=== PATIENT | female | born 1980 | race Caucasian/White ===

== ENCOUNTER 2016-04-21 11:38 | Emergency (ER) | payer MEDICAID ==
[2016-04-21] MEDS ORDERED: HYDROmorphONE/DILAUDID 1 MG/ML SYR IVP ONE (12:10)
[2016-04-21] MEDS ORDERED: NS 1,000 ML IV ONE (12:31)
[2016-04-21] MEDS ORDERED: MIDAZOLAM 2 MG/2 ML VIAL IVP ONE (12:45)
[2016-04-21] MEDS ORDERED: MIDAZOLAM 2 MG/2 ML VIAL ONE (12:46)
--- NOTE | 2016-04-21 12:47 | EDPHY ---
H & P Smoking Status: Current every day smoker Time Seen by Provider: 04/21/16 12:40 HPI/ROS: CHIEF COMPLAINT: Left hip dislocation HISTORY OF PRESENT ILLNESS: 36-year-old female history of recurrent left hip dislocation, multiple revisions surgeries arrives via ambulance after she rolled over in bed and felt her hip dislocate. She tried to reduce this at home unsuccessfully. REVIEW OF SYSTEMS: A ten point review of systems was performed and is negative with the exception of the items mentioned in the HPI PAST MEDICAL & SURGICAL HISTORY: Left hip arthroplasty. Recurrent hip dislocation with multiple revisions. SOCIAL HISTORY:positive smoker PHYSICAL EXAM (Prior to examination, patient consented to physical exam, hands were washed and my usual and customary physical exam procedures followed) 1) GENERAL: Well-developed, well-nourished, alert and oriented. Appearsuncomfortable . 2) HEAD: Normocephalic, atraumatic 3) HEENT: Pupils equal, round, reactive to light bilaterally. Sclera anicteric. Nasopharynx, oropharynx, clear, no lesions. 4) NECK: Full range of motion, no meningeal signs. 5) LUNGS: Clear auscultation bilaterally, no wheezes, no rhonchi, no retractions. 6) HEART: Regular rate and rhythm, no murmur, no heave, no gallop. 7) ABDOMEN: No guarding, no rebound, no focal tenderness, 8) MUSCULOSKELETAL: left lower extremity: Patient is sitting upright with her thigh flexed with a pillow splint in place. The distal DP PT pulses are present and brisk with normal color normal temperature. Soft compartments 9) BACK: no visual or palpable abnormality. 10) SKIN: No rash, no petechiae. DIFFERENTIAL DIAGNOSIS: [In no particular include but limited to fracture, dislocation, compartment syndrome (Zeeshan Villanueva Prabha) Constitutional: Initial Vital Signs Temperature (C) 37 C 04/21/16 11:38 Heart Rate 87 04/21/16 11:38 Respiratory Rate 20 04/21/16 11:38 Blood Pressure 88/81 H 04/21/16 11:38 O2 Sat (%) 95 04/21/16 11:38 O2 Delivery Mode [Post Non-Rebreather Mask Procedure 1st] O2 Delivery Mode [Procedural Non-Rebreather Mask 1st] O2 Delivery Mode [.Immediate Non-Rebreather Mask Pre-Procedure Procedural 1st Post Procedure 1st] O2 Delivery Mode Room Air O2 (L/minute) [Post Procedure 10 1st] O2 (L/minute) [.Immediate Pre- 10 Procedure Procedural 1st Post Procedure 1st] Allergies/Adverse Reactions: No Known Allergies Allergy (Verified 10/01/14 15:28) Home Medications: Medication Instructions Recorded ZOLPIDEM TARTRATE [Ambien CR 12.5 12.5 mg PO HS PRN 06/09/14 mg] clonAZEPAM [Clonazepam] 1 mg PO TID PRN 07/06/15 Cymbalta 01/02/16 Hydrocodone/APAP 5/325 [[place] 1 - 2 each PO Q6 PRN #20 tab 02/09/16 5/325] oxyCODONE/APAP 5/325 [Percocet 1 tab PO Q6 #10 tab 04/21/16 5/325] MDM/Departure - MDM Procedures: Procedure: Dislocation reduction. Indications: Dislocation Initial attempts at reduction without procedural sedation or unsuccessful. Procedural sedation provided by Dr. Redman. The dislocation of the left hip was reduced using traction counter traction technique without complications. Post reduction the patient's neurovascular exam is normal. Post reduction x-ray demonstrates reduction of the joint to the anatomic position. The procedure was performed by myself. (Zeeshan Villanueva) Medications Given: Discontinued Medications Hydromorphone HCl (Dilaudid) 1 mg IVP EDNOW ONE Stop: 04/21/16 12:11 Last Admin: 04/21/16 12:19 Dose: 1 mg Sodium Chloride (Ns) 1,000 mls @ 0 mls/hr IV ONCE ONE PRN Reason: Wide Open Stop: 04/21/16 12:32 Last Admin: 04/21/16 12:31 Dose: 1,000 mls Midazolam HCl (Versed) 2 mg IVP ONCE ONE Stop: 04/21/16 12:46 Last Admin: 04/21/16 12:51 Dose: 2 mg Ondansetron HCl (Zofran) 4 mg IVP EDNOW ONE Stop: 04/21/16 12:52 Last Admin: 04/21/16 12:52 Dose: 4 mg Oxycodone/Acetaminophen (Percocet 5/325) 1 tab PO EDNOW ONE Stop: 04/21/16 14:14 Last Admin: 04/21/16 14:39 Dose: 1 tab ED Course/Re-evaluation: The patient was re-evaluated with serial exams. Confirmed anatomic alignment post reduction. She has been given AB duction pillow . Recommend she follow up with orthopedic surgeon in [place] as she has a history of recurrent left hip dislocation. She is neurovascular intact with no evidence of compartment syndrome. (Zeeshan Villanueva) Procedure: Procedural sedation. A pre-sedation evaluation was completed on the patient at 2:20 p.m.. Patient is an appropriate candidate for procedural sedation. The risks of the sedation were discussed with the patient. ASA class 1 E, mallimpati 1. A time out was completed. The patient was sedated with 80 mg IV propofol . The patient was monitored with continuous pulse oximetry and wireless sales expert. There were no complications and no significant hypoxemia. I remained at the bedside for the sedation. The total time I spent in the procedural sedation was 10 minutes. Left hip relocation performed by KAVEH Gaston. I have evaluated and participated in the management of this patient. My co- signature indicates that I have reviewed this chart and that I agree with the findings and the plan of care as documented. My personal history and physical findings include: 36-year-old female with history of multiple left hip dislocations. She presents today with a left hip dislocation. Heart is regular , lungs are clear, abdomen is soft and nontender. She is holding her left leg flexed at the hip and at the knee. Left dorsalis pedis pulses 2+. (Sravanthi Redman) - Depart Disposition: Home, Routine, Self-Care Clinical Impression: Hip dislocation, left Qualifiers: Encounter type: initial encounter Qualifier Code: (S73.005A) Unspecified dislocation of left hip, initial encounter Condition: Good Instructions: Hip Dislocation (ED) Additional Instructions: If you feel your hip dislocated again call 911 Prescriptions: oxyCODONE/APAP 5/325 [Percocet 5/325] 1 tab PO Q6 #10 tab Referrals: Follow-up, with the orthopedic surgeon in [place] this week [Other] - As per Instructions Deloris Cummings MD [Medical Doctor] - 2-3 days, call for appt. (Dr. Deloris Cummings is a [facility] orthopedic surgeon)
[2016-04-21] MEDS ORDERED: ONDANSETRON 4 MG/2 ML VIAL ONE (12:49)
[2016-04-21] MEDS ORDERED: ONDANSETRON 4 MG/2 ML VIAL IVP ONE (12:51)
--- NOTE | 2016-04-21 13:20 | DX ---
Left hip 2 views at 1213 hours History: Possible dislocation. History of previous dislocations. Comparison: Pelvis February 09, 2016. Findings: Posterolateral dislocation of the left hip arthroplasty is present. No fracture is identifi ed. Mild lateral soft tissue swelling is present. Impression: Posterolateral dislocation of the left hip arthroplasty.
[2016-04-21] MEDS ORDERED: PROPOFOL 200 MG/20 ML VIAL ONE (13:21)
[2016-04-21 13:59] VITALS: RESP 14
[2016-04-21] MEDS ORDERED: OXYCODONE/APAP 5/325 TAB PO ONE (14:13)
[2016-04-21] MEDS ORDERED: OXYCODONE/APAP 5/325 TAB ONE (14:15)
--- NOTE | 2016-04-21 14:27 | DX ---
AP pelvis at 1325 hours History: Assess reduction attempt. Comparison: Left hip same day at 1213 hours. Findings: There is persistent lateral dislocation of the left hip arthroplasty. No fracture is identi fied. Impression: Persistent lateral dislocation.
[2016-04-21 14:40] VITALS: BP 128/78; PULSE 70; TEMP 98.4; O2SAT 94
--- NOTE | 2016-04-21 15:14 | DX ---
AP pelvis at 1355 hours History: Post reduction. Comparison: Pelvis same day at 1325 hours and left hip same day at 1213 hours. Findings: On this single view, there appears to have been interval reduction of a left hip arthroplas ty dislocation. No fracture is identified. Impression: Apparent interval reduction of left hip arthroplasty dislocation.
== END 2016-04-21 14:39 | disposition home or self-care (01) ==
LOC: EDUNIT#
PROC: 0SSBXZZ Reposition Left Hip Joint, External Approach (ICD-10-PCS; principal; 2016-04-21)
DX: M24.452 Recurrent dislocation, left hip (principal); F17.200 Nicotine dependence, unspecified, uncomplicated; Z96.642 Presence of left artificial hip joint; X58.XXXA Exposure to other specified factors, initial encounter
CPT/HCPCS: 96374; J1170; J2250; J2405; J2704

== ENCOUNTER 2016-04-23 11:57 | Observation (INO) | payer MEDICAID ==
[2016-04-23] MEDS ORDERED: fentaNYL 100 MCG/2 ML INJ IVP ONE ×2 (12:38→14:32)
--- NOTE | 2016-04-23 13:15 | DX ---
AP pelvis at 1235 hours History: Recurrent dislocation. Comparison: AP pelvis April 21, 2016 at 1355 hours. Findings: There is recurrent lateral dislocation of the left hip arthroplasty. No fracture is identif ied. Impression: Recurrent lateral arthroplasty dislocation.
--- NOTE | 2016-04-23 13:16 | EDPHY ---
H & P Stated Complaint: Hip Dislocation Source: Patient Exam Limitations: No limitations - Personal History LMP (Females 10-55): 15-21 Days Ago Current Tetanus/Diphtheria Vaccine: Unsure Current Tetanus Diphtheria and Acellular Pertussis (TDAP): Unsure - Medical/Surgical History Hx Asthma: Yes Hx Chronic Respiratory Disease: No Hx Diabetes: No Hx Cardiac Disease: No Hx Renal Disease: No Hx Cirrhosis: No Hx Alcoholism: No Hx HIV/AIDS: No Hx Splenectomy or Spleen Trauma: No Other PMH: L hip replacement w/ revision surgery (can dislocate/reduce herself) , asthma, add, ptsd, anxiety, panic disorder - Social History Smoking Status: Current every day smoker HPI/ROS: CHIEF COMPLAINT: Left hip pain, dislocation HISTORY OF PRESENT ILLNESS: patient has extensive history of left hip pain, status post arthroplasty with 3 revisions. Most recently she had this worked on last May. Earlier this morning she was attempting to tie her shoe when her left leg rotated inward and she felt it pop out. She has severe pain since that time. It radiates down the leg. No numbness or tingling. No pain elsewhere. No new trauma. surgeon is Dr. De La Torre in [place] at [facility]. No other associated complaints or modifying factors. REVIEW OF SYSTEMS: Ten systems reviewed and are negative unless otherwise noted in the HPI EXAMINATION General Appearance: Alert, no distress , crying but consolable Head: normocephalic, atraumatic Eyes: Pupils equal and round, no conjunctival pallor or injection Neck: Normal inspection Respiratory: No dyspnea or retractions. No distress Cardiovascular: Pulses normal throughout. symmetric DP and PT pulses are 2+ .Brisk cap refill Gastrointestinal: No distention Neurological: A&O, sensory symmetric, strength symmetric . Skin: Warm and dry, no rash Extremities: Severe tenderness to palpation of the left hip. There is a shortened appearance with internal rotation of the hip. She is neurovascular intact distally this with range of motion retained about the ankle and foot. No cyanosis, pallor anesthesia distally. Psychiatric: Mood and affect normal DIFFERENTIAL DIAGNOSES: Including but not limited to Recurrent hip dislocation, acute dislocation MDM: acute dislocation of the left hip that is also recurrent. The patient has an extensive orthopedic history without leg. She has had an arthroplasty with revision x3 with doctor Britt, not at this facility. This was done while this time her shoe. She is neurovascular intact distally but does appear to be in pain. We will move her to the appropriate room to proceed with a sedation and reduction of the hip. She is asking to have this done and to be sent to her physician. She does not want us to call Orthopedics here. 2:06 p.m. I discussed the case with Dr. Ryan and informed him of my inability to reduce the hip. He said that he can take patient to OR at 5:00 p.m.. He gave the okay to admit to his service observation status. He plans to take patient to the OR for reduction of the hip after clinic. She will be admitted to his service in stable condition. PROCEDURE: Dislocation reduction, Left hip. Patient was moved to room 1 for conscious sedation. This was administered and monitored by Dr. Dick. Please see her note for details regarding sedation. After appropriate sedation, 5 attempts were made to reduce the left hip without success. There were multiple attempts to do so, including [address] Dick. We are unable to do so successfully. She remained neurovascular intact distally. She had no complications during the sedation. SUPERVISION:Patient was evaluated in conjunction with the supervising physician. Please see their note for details. (Chris Renteria) Constitutional: Initial Vital Signs Temperature (C) 36.8 C 04/23/16 11:57 Heart Rate 85 04/23/16 11:57 Respiratory Rate 18 04/23/16 11:57 Blood Pressure 117/97 H 04/23/16 11:57 O2 Sat (%) 98 04/23/16 11:57 O2 Delivery Mode [Post Non-Rebreather Mask Procedure 1st] O2 Delivery Mode [Procedural Non-Rebreather Mask 4th] O2 Delivery Mode [Procedural Non-Rebreather Mask 3rd] O2 Delivery Mode [Procedural Non-Rebreather Mask 2nd] O2 Delivery Mode [Procedural Non-Rebreather Mask 1st] O2 Delivery Mode [.Immediate Non-Rebreather Mask Pre-Procedure Procedural 1st Post Procedure 1st] O2 Delivery Mode Nasal Cannula O2 (L/minute) [Post Procedure 12 1st] O2 (L/minute) [Procedural 4th] 12 O2 (L/minute) [Procedural 2nd] 12 O2 (L/minute) [Procedural 1st] 12 O2 (L/minute) [.Immediate Pre- 12 Procedure Procedural 1st Post Procedure 1st] O2 (L/minute) 2 Allergies/Adverse Reactions: No Known Allergies Allergy (Verified 10/01/14 15:28) Home Medications: Medication Instructions Recorded Albuterol Hfa Anes Only [Proair 1 - 2 puffs IH DAILY PRN 04/23/16 Hfa Icu (*)] Amoxicillin Trihydrate 500 mg PO Q12H 04/23/16 [Amoxicillin] Fluticasone Hfa 110 Mcg [Flovent 2 puffs IH BID 04/23/16 110 MCG Hfa MDI (*)] Zolpidem Tartrate [Ambien 5MG (*)] 5 mg PO HS 04/23/16 clonazePAM [klonoPIN (*)] 1 mg PO TID PRN 04/23/16 Medical Decision Making Other Provider: Procedure: Conscious sedation. Indication: Hip reduction. KAVEH Maciel, performed the reduction and I performed the conscious sedation. I assisted with the reduction attempt as well. The patient is an appropriate candidate to tolerate procedural sedation. The patient's vitals signs and mental status are appropriate. Chest clear to auscultation. The risks , benefits and alternatives of the sedation were discussed with the patient. The patient is ASA classification 1E. The patient's Mallampati airway score was 2 and the patient did meet the 3-3-2 airway measurements. A time out was completed. The patient was sedated with 110mg IV Propofol. The patient was monitored with continuous pulse oximetry, awake overnight monitor and end tidal CO2. There were no complications and no significant hypoxemia. I performed the sedation. The total time I spent at the bedside during the procedural sedation was 15 minutes. The patient was examined after the procedural sedation and has returned to their pre-sedation baseline with normal vital signs and a normal examination. Unable to reduce the hip. (Layla Dick) - Data Points Medications Given: Discontinued Medications Fentanyl (Sublimaze) 100 mcg IVP EDNOW ONE Stop: 04/23/16 12:39 Last Admin: 04/23/16 12:44 Dose: 100 mcg Fentanyl (Sublimaze) 100 mcg IVP EDNOW ONE Stop: 04/23/16 14:33 Last Admin: 04/23/16 14:36 Dose: 100 mcg Propofol (Diprivan) 100 mg IVP EDNOW ONE Stop: 04/23/16 14:01 Last Admin: 04/23/16 14:36 Dose: 100 mg Departure - Departure Disposition: [facility] Clinical Impression: Hip dislocation, left Qualifiers: Encounter type: initial encounter Qualifier Code: (S73.005A) Unspecified dislocation of left hip, initial encounter Dislocation of internal left hip prosthesis Qualifiers: Encounter type: initial encounter Qualifier Code: (T84.021A) Dislocation of internal left hip prosthesis, initial encounter
[2016-04-23] MEDS ORDERED: PROPOFOL 200 MG/20 ML VIAL ONE ×3 (13:33→16:39)
[2016-04-23] MEDS ORDERED: ONDANSETRON 4 MG/2 ML VIAL ONE (13:48)
[2016-04-23] MEDS ORDERED: PROPOFOL 200 MG/20 ML VIAL IVP ONE (14:00)
[2016-04-23] MEDS ORDERED: fentaNYL 100 MCG/2 ML INJ ONE ×2 (14:21→19:04)
--- NOTE | 2016-04-23 14:44 | DX ---
AP PELVIS, one view, 14:36 HISTORY: Failed left hip reduction COMPARISON: April 21, 2016 FINDINGS: There is a recurrent superior posterior left total hip replacement dislocation. No fracture is identified. Impression: Recurrent left hip dislocation.
[2016-04-23] MEDS ORDERED: MIDAZOLAM 2 MG/2 ML VIAL ONE (16:34)
[2016-04-23] MEDS ORDERED: LIDOCAINE 2% 5 ML SDV ONE (16:39)
[2016-04-23] MEDS ORDERED: ONDANSETRON 4 MG/2 ML VIAL IVP PRN (18:31)
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
--- NOTE | 2016-04-23 18:52 | DX ---
Intraoperative Fluoroscopy HISTORY: Left hip pain. Closed hip reduction. COMPARISON: X-ray performed earlier today. Fluoroscopy time: 3 seconds. Accumulative dose: 0.36 mGy. FINDINGS: A single image demonstrates reduction of the hip dislocation. There is evidence of left h ip arthroplasty. No evidence for a fracture in the field of view. IMPRESSION: Intraoperative fluoroscopy for reduction of left hip dislocation.
[2016-04-23] MEDS: OXYCODONE/APAP 5/325 TAB PO PRN (20:49)
[2016-04-23] MEDS: clonazePAM 1 MG TAB PO PRN ×2 (20:49→21:02)
[2016-04-23] MEDS ORDERED: ZOLPIDEM TARTRATE 5 MG TAB PO SCH (21:00)
[2016-04-23] MEDS: ACETAMINOPHEN 325 MG TAB PO PRN (23:08)
[2016-04-24] MEDS: OXYCODONE/APAP 5/325 TAB PO PRN ×4 (00:17→11:47)
[2016-04-24] MEDS: ACETAMINOPHEN 325 MG TAB PO PRN (04:11)
[2016-04-24] MEDS: clonazePAM 1 MG TAB PO PRN ×3 (04:12→10:40)
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
[2016-04-24 08:26] VITALS: BP 105/65; PULSE 68; RESP 16; TEMP 98.5; O2SAT 89
== END 2016-04-24 12:08 | disposition home or self-care (01) ==
LOC: EDUNIT# → F3N 19:21
PROVIDERS: ADMIT Orthopaedic Surgery; ATTEND Orthopaedic Surgery
PROC: 0SSBXZZ Reposition Left Hip Joint, External Approach (ICD-10-PCS; principal; 2016-04-23 17:00)
DX: T84.021A Dislocation of internal left hip prosthesis, initial encounter (principal); X50.1XXA Overexertion from prolonged static or awkward postures, initial encounter; J45.909 Unspecified asthma, uncomplicated; F41.8 Other specified anxiety disorders
CPT/HCPCS: 27266; 72170; 73502; 76001; 97161; G0378; 96374; J2250; J2405; J2704; J3010

== ENCOUNTER 2016-05-15 12:45 | Emergency (ER) | payer MEDICAID ==
[2016-05-15] MEDS ORDERED: LORazepam 2 MG/ML INJ IVP ONE (13:03)
[2016-05-15] MEDS ORDERED: ONDANSETRON 4 MG/2 ML VIAL IVP ONE (13:03)
[2016-05-15] MEDS ORDERED: HYDROmorphONE/DILAUDID 1 MG/ML SYR IVP ONE (13:03)
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
[2016-05-15] MEDS ORDERED: NS 1,000 ML IV ONE ×2 (14:05→15:15)
[2016-05-15] MEDS ORDERED: PROPOFOL 200 MG/20 ML VIAL ONE ×2 (14:20)
[2016-05-15] MEDS ORDERED: PROPOFOL 200 MG/20 ML VIAL IVP ONE (15:26)
[2016-05-15 15:34] VITALS: RESP 20
[2016-05-15 16:23] VITALS: BP 110/50; PULSE 78; TEMP 98.1; O2SAT 98
== END 2016-05-15 16:26 | disposition home or self-care (01) ==
LOC: EDUNIT#
PROC: 0SSBXZZ Reposition Left Hip Joint, External Approach (ICD-10-PCS; principal; 2016-05-15)
DX: T84.021A Dislocation of internal left hip prosthesis, initial encounter (principal); F17.200 Nicotine dependence, unspecified, uncomplicated; Y79.2 Prosthetic and other implants, materials and accessory orthopedic devices associated with adverse incidents
CPT/HCPCS: 96374; J1170; J2405; J2704

== ENCOUNTER 2016-06-07 08:52 | Emergency (ER) | payer MEDICAID ==
--- NOTE | 2016-06-07 09:03 | EDPHY ---
H & P Time Seen by Provider: 06/07/16 09:01 HPI/ROS: CHIEF COMPLAINT: Recurrent left hip dislocation HISTORY OF PRESENT ILLNESS: The patient presents to the ED with a recurrent left hip dislocation. The patient have had a total of 16 prior dislocations. She recently underwent a revision surgery performed approximately 1 week ago at [facility]. The patient was on a toilet today bending over and dislocated her left hip. The patient reports this is her 1st dislocation since her revision. The patient denies any numbness or weakness. She denies additional complaints. The patient has not yet seen her surgeon in follow-up. The patient reports moderate pain and inability to move her leg. REVIEW OF SYSTEMS: A comprehensive 10 point review of systems is otherwise negative aside from elements mentioned in the history of present illness. Source: Patient Exam Limitations: No limitations - Medical/Surgical History Hx Asthma: Yes Hx Chronic Respiratory Disease: No Hx Diabetes: No Hx Cardiac Disease: No Hx Renal Disease: No Hx Cirrhosis: No Hx Alcoholism: No Hx HIV/AIDS: No Hx Splenectomy or Spleen Trauma: No Other PMH: L hip replacement w/ revision surgery (can dislocate/reduce herself) , asthma, add, ptsd, anxiety, panic disorder - Social History Smoking Status: Current every day smoker - Physical Exam Exam: General Appearance: Alert, no distress Eyes: Pupils equal and round no pallor or injection ENT, Mouth: Mucous membranes moist Respiratory: There are no retractions, lungs are clear to auscultation Cardiovascular: Regular rate and rhythm Gastrointestinal: Abdomen is soft and nontender, no masses, bowel sounds normal Neurological: Sensation intact to light touch throughout the left lower extremity, 5/5 EHL, FHL, AT and PT function noted Musculoskeletal: Neck is supple nontender Extremities: Left hip held in internal rotation and flexion, 2+ dorsalis pedis and posterior tibial pulses noted Constitutional: Initial Vital Signs Temperature (C) 37.1 C 06/07/16 08:55 Heart Rate 88 06/07/16 08:55 Respiratory Rate 18 06/07/16 08:55 Blood Pressure 106/70 06/07/16 08:55 O2 Sat (%) 99 06/07/16 08:55 O2 Delivery Mode [Post Nasal Cannula Procedure 2nd] O2 Delivery Mode [Post Non-Rebreather Mask Procedure 1st] O2 Delivery Mode [Procedural Non-Rebreather Mask 2nd] O2 Delivery Mode [Procedural Non-Rebreather Mask 1st] O2 Delivery Mode [.Immediate Non-Rebreather Mask Pre-Procedure] O2 Delivery Mode Room Air O2 (L/minute) [Post Procedure 2 2nd] O2 (L/minute) [Post Procedure 15 1st] O2 (L/minute) [Procedural 2nd] 15 O2 (L/minute) [Procedural 1st] 15 O2 (L/minute) [.Immediate Pre- 15 Procedure] Allergies/Adverse Reactions: No Known Allergies Allergy (Verified 10/01/14 15:28) Home Medications: Medication Instructions Recorded RX: Albuterol Hfa Anes Only 1 - 2 puffs IH DAILY PRN 04/23/16 [Proair Hfa Icu (*)] RX: Amoxicillin Trihydrate [Amoxil] 500 mg PO Q12H 04/23/16 RX: Fluticasone Hfa 110 Mcg 2 puffs IH BID 04/23/16 [Flovent 110 MCG Hfa MDI (*)] RX: Zolpidem Tartrate [Ambien 5MG 5 mg PO HS 04/23/16 (*)] RX: clonazePAM [klonoPIN (*)] 1 mg PO TID PRN 04/23/16 Hydrocodone/APAP 5/325 [[place] 1 tab PO Q6 PRN #10 tab 05/15/16 5/325 (RX)] Hydrocodone/APAP 5/325 [[place] 1 - 2 each PO Q6 PRN #20 tab 06/07/16 5/325] Medical Decision Making - Diagnostics Imaging: AP pelvis x-ray. Images reviewed by myself and discussed with radiologist Findings: Comparison to 05/15/2016. The left femoral head prosthesis is dislocated superior to the acetabular component of the hip replacement. Surgical clips are noted over the left hip. No fractures are seen. The right hip joint appears to be normal. The SI joints and symphysis are normal. Impression: 1. Superior dislocation of the left femoral head prosthesis positioned along the superolateral aspect of the acetabular component of the hip replacement. Post reduction AP pelvis x-ray. Images reviewed by myself Impression: Reduction of previously noted superior lateral prosthetic hip dislocation Procedures: Procedure: Conscious sedation. Indication: Left prosthetic hip dislocation The patient is an appropriate candidate to tolerate procedural sedation. The patient's vital signs and mental status are appropriate. The risks, benefits and alternatives of the sedation were discussed with the patient. The patient is ASA classification 1. The patient's Mallampati airway score was 1 and the patient did meet the 3-3-2 airway measurements. A time out was completed. The patient was sedated with 90 mg of propofol. The patient was monitored with continuous pulse oximetry, visiting professor and end tidal CO2. There were no complications and no significant hypoxemia. I performed both the sedation and the procedure. The total time I spent at the bedside during the procedural sedation was 11 minutes. The patient was examined after the procedural sedation and has returned to their pre-sedation baseline with normal vital signs and a normal examination. Procedure: Dislocation reduction. Indication: Left prosthetic hip dislocation The left periprosthetic hip dislocation was reduced in the usual fashion without complications. Post reduction the patient's neurovascular exam is normal. Post reduction x-ray demonstrates reduction of the joint to the anatomic position. The procedure was performed by myself. ED Course/Re-evaluation: The patient presents to the ED with a recurrent dislocation of her left hip prosthesis. The patient was noted to be neurologically intact. The patient had an IV established. X-ray does confirm the presence of a recurrent hip dislocation. The patient was verbally consented to undergo conscious sedation with propofol. I reduced her hip without complication. Patient was re-evaluated at 10:00 a.m.. She is neurologically intact. She is ambulatory without acute complaints. She is comfortable being discharged home. She will be provided a short course of [place] pain medication. Differential Diagnosis: Differential diagnosis considered includes fracture, sprain, dislocation Departure - Departure Disposition: Home, Routine, Self-Care Clinical Impression: Hip dislocation, left Condition: Good Instructions: Hip Dislocation (ED) Additional Instructions: 1. Please follow up with Dr. De La Torre as scheduled. 2. Please be careful with extreme ranges of motion as you clearly continued to be susceptible to hip dislocations. 3. [place] as needed for pain Referrals: Shelley De La Torre [Non Staff Provider ()] - As per Instructions Prescriptions: Hydrocodone/APAP 5/325 [[place] 5/325] 1 - 2 each PO Q6 PRN #20 tab PRN Reason: for pain
[2016-06-07] MEDS ORDERED: PROPOFOL 200 MG/20 ML VIAL ONE (09:04)
[2016-06-07 10:15] VITALS: BP 109/64; PULSE 78; RESP 18; TEMP 98.4; O2SAT 99
== END 2016-06-07 10:15 | disposition home or self-care (01) ==
LOC: EDUNIT#
PROC: 0SSBXZZ Reposition Left Hip Joint, External Approach (ICD-10-PCS; principal; 2016-06-07)
DX: T84.021A Dislocation of internal left hip prosthesis, initial encounter (principal); J45.909 Unspecified asthma, uncomplicated; F17.200 Nicotine dependence, unspecified, uncomplicated; Y79.2 Prosthetic and other implants, materials and accessory orthopedic devices associated with adverse incidents
CPT/HCPCS: J2704

== ENCOUNTER → 2016-06-10 | Day surgery (SDC) | payer MEDICAID ==
[~2016-06-10] MED LIST: HYDROmorphONE/DILAUDID 1 MG/ML SYR IVP ONE; HYDROmorphONE/DILAUDID 1 MG/ML SYR ONE; LIDOCAINE 2% 100 MG/5 ML SYR ONE; LORazepam 2 MG/ML INJ ONE; MIDAZOLAM 2 MG/2 ML VIAL IVP ONE; MIDAZOLAM 2 MG/2 ML VIAL ONE; PROPOFOL 200 MG/20 ML VIAL IVP ONE; PROPOFOL 200 MG/20 ML VIAL ONE; PROPOFOL/EMULSION 500 MG/50 ML BOTTLE IV ONE; fentaNYL 100 MCG/2 ML INJ IVP ONE; fentaNYL 100 MCG/2 ML INJ ONE
--- NOTE | 2016-06-10 17:05 | EDPHY ---
H & P Stated Complaint: Left Hip Dislocation - Personal History Current Tetanus/Diphtheria Vaccine: Yes Current Tetanus Diphtheria and Acellular Pertussis (TDAP): Yes - Medical/Surgical History Hx Asthma: Yes Hx Chronic Respiratory Disease: No Hx Diabetes: No Hx Cardiac Disease: No Hx Renal Disease: No Hx Cirrhosis: No Hx Alcoholism: No Hx HIV/AIDS: No Hx Splenectomy or Spleen Trauma: No Other PMH: L hip replacement w/ revision surgery (can dislocate/reduce herself) , asthma, add, ptsd, anxiety, panic disorder - Social History Smoking Status: Current every day smoker Time Seen by Provider: 06/10/16 17:03 HPI/ROS: CHIEF COMPLAINT: Hip dislocation HISTORY OF PRESENT ILLNESS: 36-year-old female familiar to myself in ER staff arrives via ambulance complaining of atraumatic hip dislocation after she was bending over in the refrigerator and felt her hip dislocate. This is hip dislocation # 19.she had revision surgery 2 weeks ago by a orthopedic surgeon at [facility]. She was seen the ER 3 days ago for same complaint.denies numbness or paresthesia. Denies direct trauma. Last oral intake 9:00 a.m. REVIEW OF SYSTEMS: A ten point review of systems was performed and is negative with the exception of the items mentioned in the HPI PAST MEDICAL & SURGICAL HISTORY: recurrent hip dislocation. Multiple revisions surgeries. SOCIAL HISTORY: Daily smoker PHYSICAL EXAM (Prior to examination, patient consented to physical exam, hands were washed and my usual and customary physical exam procedures followed) 1) GENERAL: Well-developed, well-nourished, alert and oriented. She is crying when I enter the room . 2) HEAD: Normocephalic, atraumatic 3) HEENT: Pupils equal, round, reactive to light bilaterally. Sclera anicteric. 4) NECK: Full range of motion, no meningeal signs. 5) LUNGS: Clear auscultation bilaterally, no wheezes, no rhonchi, no retractions. 6) HEART: Regular rate and rhythm, no murmur, no heave, no gallop. 7) ABDOMEN: No guarding, no rebound, no focal tenderness, 8) MUSCULOSKELETAL: Left lower extremity is shortened, internally rotated, DP PT pulses are present and brisk. 9) BACK: No CVA tenderness. 10) SKIN: No rash, no petechiae. 11) Psychiatric: Patient is oriented X 3, there is no agitation. DIFFERENTIAL DIAGNOSIS: [in no particular include but limited to dislocation, fracture, subluxation (Zeeshan Villanueva) Constitutional: Initial Vital Signs Temperature (C) 36.9 C 06/10/16 16:54 Heart Rate 76 06/10/16 16:54 Respiratory Rate 14 06/10/16 16:54 Blood Pressure 113/100 H 06/10/16 16:54 O2 Sat (%) 96 06/10/16 16:54 O2 Delivery Mode [Post Room Air Procedure 1st] O2 Delivery Mode [Procedural Room Air 1st] O2 Delivery Mode [.Immediate Non-Rebreather Mask Pre-Procedure] O2 Delivery Mode Nasal Cannula O2 (L/minute) [Procedural 1st] 99 O2 (L/minute) [.Immediate Pre- 15 Procedure] O2 (L/minute) 5 Allergies/Adverse Reactions: No Known Allergies Allergy (Verified 10/01/14 15:28) Home Medications: Medication Instructions Recorded Albuterol Hfa Anes Only [Proair 1 - 2 puffs IH DAILY PRN 04/23/16 Hfa Icu (*)] Amoxicillin Trihydrate [Amoxil] 500 mg PO Q12H 04/23/16 Fluticasone Hfa 110 Mcg [Flovent 2 puffs IH BID 04/23/16 110 MCG Hfa MDI (*)] Zolpidem Tartrate [Ambien 5MG (*)] 5 mg PO HS 04/23/16 clonazePAM [klonoPIN (*)] 1 mg PO TID PRN 04/23/16 Hydrocodone/APAP 5/325 [[place] 1 tab PO Q6 PRN #10 tab 05/15/16 5/325 (RX)] Hydrocodone/APAP 5/325 [[place] 1 - 2 each PO Q6 PRN #20 tab 06/07/16 5/325] Medical Decision Making ED Course/Re-evaluation: I performed the conscious sedation for this patient as the supervising physician for Prabha Villanueva. Procedure: Conscious sedation. Indication: Hip dislocation. I was asked by Prabha Villanueva to perform procedural sedation. The patient is an appropriate candidate to tolerate procedural sedation. The patient's vitals signs and mental status are appropriate. The risks, benefits and alternatives of the sedation were discussed with the patient. The patient did meet the 3-3- 2 airway measurements. A time out was completed. The patient was sedated with 100mg IV Propofol. The patient was monitored with continuous pulse oximetry, teletypesetter monitor and end tidal CO2. There were no complications and no significant hypoxemia. The total time I spent at the bedside during the procedural sedation was 10 minutes. The patient was examined after the procedural sedation and has returned to their pre-sedation baseline with normal vital signs and a normal examination. (Sacha Bernardo) 6:00 p.m.: Multiple attempts at reduction with procedural sedation unsuccessful. 6:27 p.m.: Phone consultation Dr. Yvon Branham orthopedics who will plan on taking patient to the operating room (Zeeshan Villanueva) - Data Points Medications Given: Discontinued Medications Fentanyl (Sublimaze) 100 mcg IVP EDNOW ONE Stop: 06/10/16 17:29 Last Admin: 06/10/16 18:07 Dose: 100 mcg Hydromorphone HCl (Dilaudid) 1 mg IVP EDNOW ONE Stop: 06/10/16 18:22 Last Admin: 06/10/16 18:22 Dose: 1 mg Midazolam HCl (Versed) 2 mg IVP ONCE ONE Stop: 06/10/16 17:29 Last Admin: 06/10/16 18:06 Dose: 2 mg Propofol (Diprivan) 120 mg IVP EDNOW ONE Stop: 06/10/16 18:08 Last Admin: 06/10/16 18:17 Dose: 120 mg Departure - Departure Disposition: To OP Cath/Surgery Clinical Impression: Recurrent dislocation, left hip Condition: Fair
[2016-06-10 18:23] VITALS: RESP 16
[2016-06-10 18:55] VITALS: BP 132/82; PULSE 78; TEMP 98.2; O2SAT 98
--- NOTE | 2016-06-10 21:27 | GCON ---
[f rep st] CONSULTATION REASON FOR CONSULTATION: Left dislocated total hip. HISTORY OF PRESENT ILLNESS: Patient is a 36-year-old who has had multiple left hip operations, most recently 2 weeks ago for revision total hip arthroplasty. Since her surgery, she has had 2 disloca tions. She presented to the emergency room after trying to reach up onto a refrigerator and re-disl ocated her hip. An attempt at reduction was tried in the emergency room but failed. PHYSICAL EXAMINATION: Her left hip is in a shortened slightly flexed position. Her distal neurovas cular exam is grossly intact. She has an incisional scar with jhonathan intact. IMAGING: Shows a dislocated left total hip arthroplasty. ASSESSMENT: Left dislocated total hip arthroplasty. PLAN: Operative closed reduction was recommended. /[id number]/MODL
--- NOTE | 2016-06-10 21:47 | GOP ---
[f rep st] OPERATIVE REPORT DATE OF OPERATION: 06/10/2016 SURGEON: Yvon Branham MD ANESTHESIA: General. PREOPERATIVE DIAGNOSIS: Dislocated left total hip arthroplasty. POSTOPERATIVE DIAGNOSIS: Dislocated left total hip arthroplasty. PROCEDURE PERFORMED: 1. Attempted closed reduction, left dislocated total hip arthroplasty. 2. Intraoperative use fluoroscopy. FINDINGS: INDICATIONS: Patient is a 36-year-old with an involved history with her left hip with multiple disl ocations following total hip arthroplasty. Two weeks ago, she underwent a revision by Dr. Shelley bucio at [facility]. She presented to the emergency room with her 2nd dislocation following the 2- weeks-ago surgery. The patient acknowledged she understood the potential risks, including but not l imited to, bleeding, infection, neurovascular damage, limb loss or limited limb function, inability to reduce the dislocated hip closed, and anesthetic risks. She was informed prior to surgery that i f I was unable to obtain a closed reduction, I would not be performing an open reduction and instead would be transferring her to her operative surgeon for definitive management. DESCRIPTION OF PROCEDURE: The patient was brought to the operating room. She was placed in the sup ine position on a radiolucent table after general anesthetic was administered. Despite IV sedation and muscle relaxant and multiple attempts, reduction was not able to be performed. The head compone nt was easily gotten out to length, but would not maintain a reduced position. The patient's wound which had some serosanguineous drainage was dressed with a sterile gauze. She was taken to the yue very room, extubated in stable condition. COMPLICATIONS: Inability to reduce left dislocated total hip. PLAN: The patient will be transferred to her operative surgeon. I personally spoke with the PA and the nurse arranging for transfer and arranged for this to occur. /[id number]/MODL
== END | disposition home or self-care (01) ==
LOC: EDUNIT# → UNDOADMOB 18:37 → FSGY 18:55
PROVIDERS: ATTEND Orthopaedic Surgery Foot and Ankle Surgery
PROC: 0SSBXZZ Reposition Left Hip Joint, External Approach (ICD-10-PCS; principal; 2016-06-10 19:11)
DX: T84.021A Dislocation of internal left hip prosthesis, initial encounter (principal)
CPT/HCPCS: 96374; J1170; J2001; J2060; J2250; J2704; J3010

== ENCOUNTER 2016-10-07 09:29 | Emergency (ER) | payer MEDICAID ==
--- NOTE | 2016-10-07 09:32 | EDPHY ---
H & P - Medical/Surgical History Hx Asthma: Yes Hx Chronic Respiratory Disease: No Hx Diabetes: No Hx Cardiac Disease: No Hx Renal Disease: No Hx Cirrhosis: No Hx Alcoholism: No Hx HIV/AIDS: No Hx Splenectomy or Spleen Trauma: No Other PMH: L hip replacement w/ revision surgery (can dislocate/reduce herself) , asthma, add, ptsd, anxiety, panic disorder - Social History Smoking Status: Current every day smoker Time Seen by Provider: 10/07/16 09:29 HPI/ROS: CHIEF COMPLAINT: Left hip dislocation HISTORY OF PRESENT ILLNESS: 36-year-old female history of recurrent left hip dislocation, last seen emergency department May 2016 at which point emergency department sedation reduction or unsuccessful. She was subsequently taken to the operating room under these direction of Dr. Yvon Branham at which point general anesthesia at reduction were not successful and she was subsequently transferred to her orthopedic surgeon in [place]. Today the patient arrives via ambulance stating REVIEW OF SYSTEMS: A ten point review of systems was performed and is negative with the exception of the items mentioned in the HPI PAST MEDICAL & SURGICAL HISTORY: Recurrent left hip dislocation. Multiple left hip revision surgeries SOCIAL HISTORY: denies alcohol or drug use PHYSICAL EXAM (Prior to examination, patient consented to physical exam, hands were washed and my usual and customary physical exam procedures followed) 1) GENERAL: Well-developed, well-nourished, alert and oriented. Appears uncomfortable, crying 2) head: Normocephalic 3) HEENT: Pupils equal, round, reactive to light bilaterally. Sclera anicteric. 4) NECK: Full range of motion, no meningeal signs. 5) LUNGS: Clear auscultation bilaterally. 6) HEART: Regular rate and rhythm. 7) ABDOMEN: No guarding, no rebound, no focal tenderness, 8) MUSCULOSKELETAL: Left lower extremity: Surgical scars noted. Femur is internally rotated and shortened. Distal DP PT pulses are present and brisk with full sensation. Intact skin. Soft compartments. She is unwilling or unable to move the left hip secondary to pain 9) BACK: no midline vertebral tenderness, no fluctuance, no step-off, no obvious trauma, no visual or palpable abnormality. 10) SKIN: No rash, no petechiae. DIFFERENTIAL DIAGNOSIS: [in no particular include but limited to fracture, dislocation, periprosthetic fracture (Zeeshan Villanueva) Constitutional: Initial Vital Signs Temperature (C) 36.7 C 10/07/16 09:38 Heart Rate 104 H 10/07/16 09:38 Respiratory Rate 18 10/07/16 09:38 Blood Pressure 116/74 10/07/16 09:38 O2 Sat (%) 94 10/07/16 09:38 O2 Delivery Mode Room Air Allergies/Adverse Reactions: No Known Allergies Allergy (Verified 10/01/14 15:28) Home Medications: Medication Instructions Recorded Albuterol Hfa Anes Only [Proair 1 - 2 puffs IH DAILY PRN 04/23/16 Hfa Icu (*)] Amoxicillin Trihydrate [Amoxil] 500 mg PO Q12H 04/23/16 Fluticasone Hfa 110 Mcg [Flovent 2 puffs IH BID 04/23/16 110 MCG Hfa MDI (*)] Zolpidem Tartrate [Ambien 5MG (*)] 5 mg PO HS 04/23/16 clonazePAM [klonoPIN (*)] 1 mg PO TID PRN 04/23/16 Hydrocodone/APAP 5/325 [[place] 1 tab PO Q6 PRN #10 tab 05/15/16 5/325 (RX)] Hydrocodone/APAP 5/325 [[place] 1 - 2 each PO Q6 PRN #20 tab 06/07/16 5/325] Medical Decision Making - Diagnostics Imaging Results: Imaging Impressions Hip X-Ray 10/07/16 09:33 Impression: Postsurgical changes of left total hip arthroplasty, as above, with dislocation of the acetabular component and femur superiorly and posteriorly. Images reviewed by myself (Zeeshan Villanueva) ED Course/Re-evaluation: 10:50 a.m.: I discussed with the patient her x-ray showing dislocation of the acetabular cup. I will consult with Orthopedics. I discussed this case with secondary supervising physician Dr. Gibson Sweeney 11:10 a.m.: Patient was re-evaluated serial exams. . I recommended that she be either admitted to the hospital or transferred to [facility] where he orthopedic surgeon has privileges. She requested I speak with her orthopedic surgeon Dr. Shelley De La Torre at [facility]. 11:20 a.m.: I spoke with the orthopedic [place] with Dr. Shelley De La Torre and have texted her photographs (without identifying information). The patient informs at this time that she wants to leave and does not want to pursue further intervention, transfer or admission noting that she has a dog to take care of, states that she left her front door unlocked.. We have discussed that I think that this is not a decision that is in her best interest and that she would be leaving against medical advice. 11:42 a.m.: Had a lengthy discussion with this patient with sonography technician Ritu at bedside as witness. Informed the patient that in my professional opinion, she necessitates further orthopedic evaluation. I have offered admission at [facility], have offered transfer to her orthopedic surgeon at [facility]. She declines both of these stating that she has commitments at home. She continues to decline further care..In my professional opinion, she fully understands the risks to her health and well- being by leaving the emergency department AGAINST MEDICAL ADVICE. She states that she would like to leave. By leaving AGAINST MEDICAL ADVICE she has verbalized understanding and acceptance of the risks of leaving AGAINST MEDICAL ADVICE, including, but not limited to, , permanent and chronic disability, permanent and chronic loss of income, permanent limb dysfunction, loss of limb , and other situations and circumstances too numerous to mention herein. I think the patient has the capacity to fully understand these risks. I have offered ample opportunity to answer questions. I have offered to speak with family and/or friends regarding this issue as well. Patient has been informed that they are welcome to return to emergency department at any point for reevaluation. (Zeeshan Villanueva) I did not see this patient while she was in the emergency department. However her care was discussed with the PA while the patient was in the department. I agree with treatment plan and management (Gibson Sweeney) - Data Points Laboratory Results: Laboratory Results 10/07/16 09:40 10/07/16 09:40 10/07/16 10/07/16 10/07/16 09:40 09:40 09:40 WBC 8.83 10^3/uL 10^3/uL (3.80-9.50) RBC 3.54 10^6/uL L 10^6/uL (4.18-5.33) Hgb 7.1 g/dL L g/dL (12.6-16.3) Hct 24.6 % L % (38.0-47.0) MCV 69.5 fL L fL (81.5-99.8) MCH 20.1 pg L pg (27.9-34.1) MCHC 28.9 g/dL L g/dL (32.4-36.7) RDW 17.7 % H % (11.5-15.2) Plt Count 1271 10^3/uL H* 10^3/uL (150-400) MPV 8.0 fL L fL (8.7-11.7) Neut % (Auto) 67.2 % % (39.3-74.2) Lymph % (Auto) 21.4 % % (15.0-45.0) Pershing % (Auto) 9.3 % % (4.5-13.0) Eos % (Auto) 0.8 % % (0.6-7.6) Baso % (Auto) 1.0 % % (0.3-1.7) Nucleat RBC Rel Count 0.0 % % (0.0-0.2) Absolute Neuts (auto) 5.93 10^3/uL 10^3/uL (1.70-6.50) Absolute Lymphs (auto) 1.89 10^3/uL 10^3/uL (1.00-3.00) Absolute Monos (auto) 0.82 10^3/uL H 10^3/uL (0.30-0.80) Absolute Eos (auto) 0.07 10^3/uL 10^3/uL (0.03-0.40) Absolute Basos (auto) 0.09 10^3/uL 10^3/uL (0.02-0.10) Absolute Nucleated RBC 0.00 10^3/uL 10^3/uL (0-0.01) Immature Gran % 0.3 % % (0.0-1.1) Immature Gran # 0.03 10^3/uL 10^3/uL (0.00-0.10) Platelet Estimate INCREASED H (ADEQ) Polychromasia 1+ H Hypochromasia 2+ H Microcytic Cells 2+ H Smear Review By Pending Sodium 144 mEq/L mEq/L (134-144) Potassium 3.7 mEq/L mEq/L (3.5-5.2) Chloride 106 mEq/L mEq/L (97-110) Carbon Dioxide 25 mEq/l mEq/l (22-31) Anion Gap 13 mEq/L mEq/L (8-16) BUN 13 mg/dL mg/dL (7-23) Creatinine 0.4 mg/dL L mg/dL (0.6-1.0) Estimated GFR > 60 Glucose 109 mg/dL H mg/dL (70-100) Calcium 8.7 mg/dL mg/dL (8.5-10.4) Beta HCG, Qual NEGATIVE Medications Given: Discontinued Medications Fentanyl (Sublimaze) 100 mcg IVP EDNOW ONE Stop: 10/07/16 10:16 Last Admin: 10/07/16 10:22 Dose: 100 mcg Lorazepam (Ativan Injection) 1 mg IVP EDNOW ONE Stop: 10/07/16 09:50 Last Admin: 10/07/16 09:57 Dose: 1 mg Departure - Departure Disposition: Against Medical Advice Clinical Impression: Elevated platelet count Hip dislocation, left Qualifiers: Encounter type: initial encounter Qualified Code(s): S73.005A - Unspecified dislocation of left hip, initial encounter Condition: Good Instructions: Hip Dislocation (ED) Additional Instructions: You have decided to leave the emergency department against medical advice. You have been informed of the risks of doing so including, but not limited to, , permanent and chronic disability, need for long-term care, limb loss, limb dysfunction. You have also been noted to have abnormalities on your blood work. It is very important that you have this followed up with Your primary care provider. You have beengiven copies of his lab studies. Referrals: [facility],. [Clinic] - As per Instructions Call, Dr. De La Torre tomorrow [Other] - As per Instructions
[2016-10-07 09:41] VITALS: BP 116/74; PULSE 104; RESP 18; TEMP 98.1; O2SAT 94
[2016-10-07] MEDS ORDERED: LORazepam 2 MG/ML INJ IVP ONE (09:49)
[2016-10-07 09:54] LABS: % IMMATURE GRANULYOCYTES 0.3 % (0.0-1.1); ABSOLUTE IMMATURE GRANULOCYTES 0.03 10^3/uL (0.00-0.10); ADD DIFF? NO; ADD MORPH? YES; ADD SCAN? NO; ATYPICAL LYMPHOCYTE FLAG 60 (0-99); FRAGMENT RBC FLAG 20 (0-99); HEMATOCRIT 24.6 % (38.0-47.0); HEMOGLOBIN 7.1 g/dL (12.6-16.3); LEFT SHIFT FLG 0 (0-99); LIPEMIA HEMOLYSIS FLAG 70 (0-99); MEAN CELL HEMOGLOBIN 20.1 pg (27.9-34.1); PLATELET CLUMPS FLAG 0 (0-99); RED BLOOD CELL COUNT 3.54 10^6/uL (4.18-5.33); RED CELL DISTRIBUTION WIDTH 17.7 % (11.5-15.2)
[2016-10-07 09:55] LABS: MEAN CELL HEMOGLOBIN CONCENTR. 28.9 g/dL (32.4-36.7); MEAN CELL VOLUME 69.5 fL (81.5-99.8)
[2016-10-07 09:56] LABS: PLATELET COUNT 1271 10^3/uL (150-400)
[2016-10-07 10:09] LABS: ANION GAP 13 mEq/L (8-16); CALCIUM 8.7 mg/dL (8.5-10.4); CARBON DIOXIDE 25 mEq/l (22-31); CHLORIDE 106 mEq/L (97-110); CREATININE 0.4 mg/dL (0.6-1.0); GLOMERULAR FILTRATION RATE > 60; GLUCOSE 109 mg/dL (70-100); POTASSIUM 3.7 mEq/L (3.5-5.2); SODIUM 144 mEq/L (134-144)
[2016-10-07] MEDS ORDERED: fentaNYL 100 MCG/2 ML INJ IVP ONE (10:15)
[2016-10-07 10:28] LABS: HYPOCHROMIA 2+; MICROCYTES 2+; PLATELET ESTIMATE INCREASED (ADEQ); POLYCHROMASIA 1+
== END 2016-10-07 12:11 | disposition left against medical advice (07) ==
LOC: EDUNIT#
DX: T84.021A Dislocation of internal left hip prosthesis, initial encounter (principal); D47.3 Essential (hemorrhagic) thrombocythemia; F17.200 Nicotine dependence, unspecified, uncomplicated; J45.909 Unspecified asthma, uncomplicated; Y82.8 Other medical devices associated with adverse incidents
CPT/HCPCS: 96374; J2060; J3010

== ENCOUNTER 2016-10-10 18:31 | Emergency (ER) | payer MEDICAID ==
[2016-10-10 18:48] VITALS: TEMP 98.4; O2SAT 96
[2016-10-10] MEDS ORDERED: LORazepam 2 MG/ML INJ ONE ×2 (19:29→20:22)
[2016-10-10] MEDS ORDERED: LORazepam 2 MG/ML INJ IVP ONE ×2 (19:30→20:29)
--- NOTE | 2016-10-10 19:45 | EDPHY ---
H & P Stated Complaint: Left Hip Dislocation HPI/ROS: CHIEF COMPLAINT: Left hip pain, chronic dislocations HISTORY OF PRESENT ILLNESS: Patient complains of ongoing left hip pain. This started on Saturday. At that time she was evaluated here and diagnosed with a left hip dislocation including dislodgement of the acetabular cup. After multiple attempts to transfer the patient for continuity of care, she refused and signed out AMA. She says she has been at home attempting to contact her surgeon, Dr. Bridges. She says she has been able to do so and has not received a phone call from them. She denies any subsequent falls or injuries. She now notes the pain is worse, she has edema on the lower extremity. She is very tearful and says that she cannot walk or take the bus to be seen anywhere else. She has no other modifying factors associated complaints PRIOR ORTHO INJURIES: Extensive hip pathology, status post total hip arthroplasty and multiple revisions. ESTABLISHED ORTHOPEDIST: Dr. Shelley De La Torre REVIEW OF SYSTEMS: Ten systems reviewed and are negative unless otherwise noted in the HPI EXAMINATION General Appearance: Alert, no distress. Tearful but consolable. Cardiovascular: Pulses normal throughout. Symmetric DP pulses 2+. Symmetric PT pulses 2+. Brisk cap refill Neurological: A&O, sensory symmetric, strength symmetric. No footdrop. Proprioception of the great toes intact symmetrically. Skin: Warm and dry, no rash. No petechiae or purpura. Extremities: Tenderness to the left hip. Range of motion not tested due to no dislocation. Range of motion of the right hip, right ankle, right knee left ankle are intact. 1+ pitting pedal edema on the left lower extremity. No erythema of the lower extremity. Pulses are symmetric with good signs of perfusion. No evidence of DVT. Psychiatric: Mood and affect normal DIFFERENTIAL DIAGNOSES: Including but not limited to dislocation, recurrent dislocation recurrent dislocation, fracture, arthroplasty failure MDM: 6:50 p.m. Left hip pain in a patient with recurrent hip dislocations. She is neurovascular intact but there is some pitting edema. She has long history of these dislocations which are refractory to conscious sedation or general anesthesia reduction severe this facility. She has been transferred to [facility] for her surgeon to intervene in the past. She is requesting that she be transferred to see her orthopedic surgeon. X-ray has been ordered. She is in no acute distress. 7:25 p.m. X-ray as interpreted by me without the aid of the radiologist reveals a dislocation of the left 4 0 head as well as dislodgement of the left acetabular cup. The acetabular cup remains in contact with the forehead. This is unchanged from the x-ray performed on October 07 at this facility. I have paged the patient's established orthopedist Dr. Shelley De La Torre. 7:34 p.m. Case discussed with orthopedic KAVEH Seymour, nutrition teacher for Dr. De La Torre. She says that she would be happy to help arrange a transfer the patient. She says they have been trying to call the patient multiple times per day but have not been able to reach her. She will contact the access center to initiate transfer. They will be happy to accept the patient for continuity of care. 7:46 p.m. I have discussed the case with Clemente at [facility]. She will initiate a bed for request there at the facility and return our phone call without information. We will initiate transfer once this is available. She remains tearful but in no acute distress 9:00 P.M. Patient has been transferred to [facility]. She is accepted by Dr. Shelley De La Torre. She will be transferred by ALS crew. She is transferred in stable condition. A disc of the films from our facility has been provided to accompany her. The radiology reports we provided. ED Precautions: Worsening pain. Erythema, edema, cyanosis, pallor, paresthesia or anesthesia. SUPERVISION: Patient was evaluated in conjunction with the supervising physician. Please see their note for details. Source: Patient Exam Limitations: No limitations - Personal History Current Tetanus/Diphtheria Vaccine: Unsure Current Tetanus Diphtheria and Acellular Pertussis (TDAP): Unsure - Medical/Surgical History Hx Asthma: Yes Hx Chronic Respiratory Disease: No Hx Diabetes: No Hx Cardiac Disease: No Hx Renal Disease: No Hx Cirrhosis: No Hx Alcoholism: No Hx HIV/AIDS: No Hx Splenectomy or Spleen Trauma: No Other PMH: L hip replacement w/ revision surgery (can dislocate/reduce herself) , asthma, add, ptsd, anxiety, panic disorder - Social History Smoking Status: Current every day smoker Constitutional: Initial Vital Signs Temperature (C) 98.4 F 10/10/16 18:44 Heart Rate 108 H 10/10/16 18:44 Respiratory Rate 16 10/10/16 18:44 Blood Pressure 109/79 10/10/16 18:44 O2 Sat (%) 96 10/10/16 18:44 O2 Delivery Mode Room Air Allergies/Adverse Reactions: No Known Allergies Allergy (Verified 10/01/14 15:28) Home Medications: Medication Instructions Recorded Albuterol Hfa Anes Only [Proair 1 - 2 puffs IH DAILY PRN 04/23/16 Hfa Icu (*)] Amoxicillin Trihydrate [Amoxil] 500 mg PO Q12H 04/23/16 Fluticasone Hfa 110 Mcg [Flovent 2 puffs IH BID 04/23/16 110 MCG Hfa MDI (*)] Zolpidem Tartrate [Ambien 5MG (*)] 5 mg PO HS 04/23/16 clonazePAM [klonoPIN (*)] 1 mg PO TID PRN 04/23/16 Hydrocodone/APAP 5/325 [[place] 1 tab PO Q6 PRN #10 tab 05/15/16 5/325 (RX)] Hydrocodone/APAP 5/325 [[place] 1 - 2 each PO Q6 PRN #20 tab 06/07/16 5/325] Medical Decision Making - Diagnostics Imaging Results: Imaging Impressions Hip X-Ray 10/10/16 18:49 Impression: Persistent dislocation of the total left hip arthroplasty. - Data Points Medications Given: Discontinued Medications Fentanyl (Sublimaze) 100 mcg IVP EDNOW ONE Stop: 10/10/16 20:57 Last Admin: 10/10/16 20:58 Dose: 100 mcg Lorazepam (Ativan Injection) 1 mg IVP EDNOW ONE Stop: 10/10/16 19:31 Last Admin: 10/10/16 19:30 Dose: 1 mg Lorazepam (Ativan Injection) 1 mg IVP EDNOW ONE Stop: 10/10/16 20:30 Last Admin: 10/10/16 20:44 Dose: 1 mg Departure - Departure Disposition: Acute Care Hospital Not [facility] Clinical Impression: Recurrent dislocation, left hip Condition: Good Referrals: Patient,NotPresent [Unknown] - As per Instructions Shelley De La Torre [Non Staff Provider (MD)] - As per Instructions
[2016-10-10 20:05] VITALS: BP 132/49; PULSE 103; RESP 22
[2016-10-10] MEDS ORDERED: fentaNYL 100 MCG/2 ML INJ ONE (20:50)
[2016-10-10] MEDS ORDERED: fentaNYL 100 MCG/2 ML INJ IVP ONE (20:56)
== END 2016-10-10 20:58 | disposition short-term general hospital (02) ==
LOC: EDUNIT#
DX: M24.452 Recurrent dislocation, left hip (principal); F17.200 Nicotine dependence, unspecified, uncomplicated; J45.909 Unspecified asthma, uncomplicated
CPT/HCPCS: 96374; J2060; J3010

== ENCOUNTER 2017-02-25 07:41 | Observation (INO) | payer MEDICAID ==
[2017-02-25] MEDS ORDERED: NS 1,000 ML IV ONE (07:48)
--- NOTE | 2017-02-25 08:01 | EDPHY ---
H & P Time Seen by Provider: 02/25/17 07:48 HPI/ROS: HPI Altered mental status, methamphetamine abuse. 36-year-old female, Lili Price, by ambulance in with [place] police from her apartment. Neighbors called police stating the patient was out on her patio yelling and screaming hysterically. On police and EMS arrival the patient was very combative yelling and screaming nonsensically. She admits to using methamphetamine recently. The apartment described by police was in complete disarray. The patient provided no additional history. Secondary to her combativeness EMS gave the patient 5 mg of intramuscular Versed. She then calmed down and they were able to establish a right EJ IV access. They noted some blood coming from her left posterior lateral hip area. She has a history of a prosthetic left hip with multiple dislocations and a recent surgical revisions secondary to these dislocations. No known history of traumatic injury. Patient admits to me to using methamphetamine. Unclear if she used heroin and alcohol as well. ROS: Unable to obtain secondary to patient's altered mental status. Past medical history: As above. And includes left hip replacement with multiple revisions. Asthma, ADD, PTSD, anxiety, panic disorder. Social history: As above. Thought to live alone by EMS. Every day smoker. Physical Exam: General Appearance: Sedated but opens eyes spontaneously, moans nonsensically, tracks with her eyes, tries to cover herself with clothing during evaluation. Dirty and disheveled in appearance. This patient generally appears well- hydrated and well-nourished. Head: Normocephalic atraumatic. Face: Facial bones are stable on palpation. Eyes: Pupils equal and round and minimally reactive to light at 2 mm bilaterally, no pallor or injection. No lid erythema or edema. ENT, Mouth: Mucous membranes moist. Dentition is intact. No malocclusion of the jaw. No tongue lacerations or abrasions. Pharynx is clear. The bilateral nasal canals are clear. No septal hematoma. Respiratory: There are no retractions, lungs are clear to auscultation with good air movement bilaterally. Chest wall is stable to AP and lateral palpation. Cardiovascular: Regular rate and rhythm. No murmur appreciated. Gastrointestinal: Abdomen is soft and nontender, no masses, bowel sounds normal. Rectal exam: Normal tone, no gross blood. No dark stool. Occult feces sent. Neurological: Motor sensory function is grossly intact. She is moving all 4 extremities. Cranial nerves are normal. Skin: Warm and dry, petechial like rash bilateral lower extremities from the ankles to the mid legs. Worse on the left side. No acute lacerations, abrasions or contusions. Healing left lateral posterior hip surgical scar from recent revision. There is a small area of about 1 mm of dehiscence with some oozing of a serous sanguinous fluid from this. The incision site is otherwise clean, dry and intact. No warmth palpable. No significant erythema indicate infection. Musculoskeletal: Neck is supple and nontender. The trachea is midline. No obvious midline cervical, thoracic, lumbar or sacral tenderness or deformity on palpation. No flank tenderness on palpation. Extremities are symmetrical, full range of motion. All joints in the bilateral upper and bilateral lower extremities range without pain or impingement. No obvious tenderness on palpation of the long bones in the bilateral upper and bilateral lower extremities. Psychiatric: Mild agitation. Database: EKG: EKG time is 8:20 a.m.; EKG shows a narrow complex normal sinus rhythm with a ventricular rate of 83. The ME, QRS, QT intervals are within normal limits. There are no ST-T wave changes indicative of ischemic or injury pattern. No evidence of right heart strain. Interpreted by me. Imaging: CT brain without contrast: Negative. Results were discussed with staff radiologist Dr. Peter Tenorio. Left hip x-ray series: The femoral head and neck has been removed at the level of the greater trochanter. No evidence of prosthesis. No evidence of acute fracture. Interpreted by me. Procedures: Emergency department course: Vital signs reviewed. She is cold with a temperature 34.6degrees. 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 Pulse oximetry 98% on 2 L of nasal cannula oxygen. Patient will be given 1 L of Warm IV normal saline. Secondary to petechial rash and possible infectious etiology blood cultures obtained. She will be covered with broad-spectrum antibiotics. Benzodiazepines will be given as needed for agitation. A Alayna Hugger was placed secondary to hypothermia. Secondary to agitation, lumbar puncture at this time will be difficult, patient will be covered empirically for possible meningococcus with 2 g of IV ceftriaxone and 1 g of IV vancomycin. She will also be given 10 mg of IV Decadron prior to IV antibiotics. 8:40 a.m., ED sepsis protocol initiated secondary to temperature less than 36 degrees, white count greater than 12,000 and petechial rash as noted above. Lactate will be obtained. Patient has returned from CT. No change in her mental status. Patient noted be significantly anemic with a hemoglobin of 7.2. This is a microcytic anemia. Hemoccult feces sent. 8:55 a.m., medical records retrieved. Patient came in as a Lili Price initially. Anemia appears to be baseline microcytic anemia. Hemoglobin from October 07 of this year was 7.1. 9:15 a.m., venous lactate is 0.5. Hemoccult feces negative. Vital signs currently blood pressure 90/54, heart rate of 80, narrow complex normal sinus rhythm on the monitor. Patient 100% on 2 L by nasal cannula. Hospitalist paged. 9:25 a.m., spoke with hospitalist. Case discussed in detail. Patient accepted for admission to the step-down unit under the care of the hospitalist service. 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 Patient's repeat neurologic Assessment remains unchanged. Blood pressure is 81/43. Repeat rectal temperature is 34.8degrees. She is in the bear hugger with multiple warm blankets over it. Will monitor her temperature closely. She is receiving 2 L of IV normal saline warm at this time. On review of her medical records her blood pressures run in the 110 to low 130s systolic on previous visits. 9:55 a.m., severe sepsis protocol initiated secondary to continued hypotension. Fluid status to be reassessed after 2 L. attempted to order standard 30 mL/kg normal saline bolus but was unable to secondary to computer issue. Repeat venous lactate was ordered. 10:15 a.m., patient admitted to the step-down unit. No change in neurologic status throughout her emergency department course. Differential Diagnosis: The differential diagnosis on this patient includes but is not limited to methamphetamine abuse, alcohol abuse, other sympathomimetic toxidrome. Traumatic brain injury, other significant acute traumatic injury unlikely. This represents a partial list of diagnoses considered. These considerations are based on history, physical exam, past history, reassessment and diagnostic testing. Constitutional: Initial Vital Signs Temperature (C) 34.6 C L 02/25/17 07:50 O2 Delivery Mode Nasal Cannula O2 (L/minute) 2 Allergies/Adverse Reactions: No Known Drug Allergies Allergy (Verified 02/25/17 11:19) Home Medications: Medication Instructions Recorded Albuterol [Proventil Inhaler HFA 1 - 2 puffs IH Q4-6PRN PRN 02/25/17 (*)] Gabapentin [Neurontin 300 MG (*)] 300 mg PO TID 02/25/17 QUEtiapine FUMARATE [Seroquel 100 100 mg PO HS 02/25/17 mg (*)] clonazePAM [klonoPIN (*)] 1 mg PO TID 02/25/17 Medical Decision Making Critical Care Time: I spent a total of 47 minutes of critical care time in obtaining history, performing a physical exam, bedside monitoring of interventions, collecting and interpreting tests and discussion with consultants but not including time spent performing procedures. - Data Points Laboratory Results: Laboratory Results 02/25/17 08:05 02/25/17 08:05 Microbiology Results: MICROBIOLOGY 02/25/17 08:50 Blood Blood Panel (PCR) - Final MRSA 02/25/17 08:50 Blood Blood Culture - Preliminary Gram Positive Cocci Clusters Gram Positive Joseph 02/25/17 08:50 Blood Blood Panel (PCR) - Final No Organism Detected 02/25/17 08:05 Blood Blood Culture - Preliminary Gram Positive Joseph 02/25/17 08:05 Blood Blood Panel (PCR) - Final Medications Given: Discontinued Medications Acetaminophen (Tylenol) 650 mg PO Q6 PRN PRN Reason: Pain, Mild/Fever, Can Take PO Stop: 08/24/17 12:38 Last Admin: 02/25/17 13:33 Dose: 650 mg Clonazepam (Klonopin) 1 mg PO TID DOMITILA Stop: 08/24/17 15:59 Last Admin: 02/25/17 16:31 Dose: 1 mg Dexamethasone (Decadron Injection) 10 mg IVP EDNOW ONE Stop: 02/25/17 08:17 Last Admin: 02/25/17 08:44 Dose: 10 mg Diphenhydramine HCl (Benadryl) 25 - 50 mg PO Q6 PRN PRN Reason: Itching Stop: 08/24/17 12:39 Last Admin: 02/25/17 13:06 Dose: 50 mg Gabapentin (Neurontin) 300 mg PO TID DOMITILA Stop: 08/24/17 15:59 Last Admin: 02/25/17 16:03 Dose: 300 mg Sodium Chloride (Ns) 1,000 mls @ 0 mls/hr IV ONCE ONE; Wide Open PRN Reason: Protocol Stop: 02/25/17 07:49 Last Admin: 02/25/17 08:17 Dose: 1,000 mls Ceftriaxone Sodium 2 gm/ (Dextrose) 50 mls @ 100 mls/hr IV EDNOW ONE PRN Reason: Protocol Stop: 02/25/17 08:44 Last Admin: 02/25/17 09:14 Dose: 50 mls Vancomycin/Sodium Chloride (Vancomycin 1 Gm (Premix)) 250 mls @ 250 mls/hr IV EDNOW ONE PRN Reason: Protocol Stop: 02/25/17 09:43 Last Admin: 02/25/17 10:41 Dose: 250 mls Sodium Chloride (Ns) 1,000 mls @ 0 mls/hr IV ONCE ONE PRN Reason: Wide Open Stop: 02/25/17 09:56 Last Admin: 02/25/17 09:55 Dose: 1,000 mls Sodium Chloride (Ns) 1,000 mls @ 0 mls/hr IV ONCE ONE PRN Reason: Wide Open Stop: 02/25/17 09:56 Last Admin: 02/25/17 09:55 Dose: 1,000 mls Quetiapine Fumarate (Seroquel) 50 mg PO BID ONE Stop: 02/25/17 13:13 Last Admin: 02/25/17 13:33 Dose: 50 mg Departure - Departure Disposition: [facility] Clinical Impression: Altered mental status, Polysubstance abuse, Hypothermia, Microcytic anemia Condition: Fair
[2017-02-25] MEDS ORDERED: cefTRIAXone 2 GM in D5W 50 ML IV ONE (08:15)
[2017-02-25] MEDS ORDERED: DEXAMETHASONE 10 MG/ML VIAL IVP ONE (08:16)
[2017-02-25 08:26] LABS: % IMMATURE GRANULYOCYTES 0.3 % (0.0-1.1); ABSOLUTE IMMATURE GRANULOCYTES 0.04 10^3/uL (0.00-0.10); ADD DIFF? NO; ADD MORPH? YES; ADD SCAN? NO; ATYPICAL LYMPHOCYTE FLAG 20 (0-99); FRAGMENT RBC FLAG 20 (0-99); HEMATOCRIT 22.8 % (38.0-47.0); HEMOGLOBIN 7.2 g/dL (12.6-16.3); LEFT SHIFT FLG 10 (0-99); LIPEMIA HEMOLYSIS FLAG 80 (0-99); MEAN CELL HEMOGLOBIN 21.4 pg (27.9-34.1); MEAN CELL HEMOGLOBIN CONCENTR. 31.6 g/dL (32.4-36.7); MEAN PLATELET VOLUME 8.6 fL (8.7-11.7); PLATELET CLUMPS FLAG 0 (0-99); PLATELET COUNT 520 10^3/uL (150-400); RED BLOOD CELL COUNT 3.36 10^6/uL (4.18-5.33); RED CELL DISTRIBUTION WIDTH 17.2 % (11.5-15.2)
[2017-02-25 08:28] LABS: MEAN CELL VOLUME 67.9 fL (81.5-99.8)
[2017-02-25 08:29] LABS: ANION GAP 10 mEq/L (8-16); CALCIUM 8.2 mg/dL (8.5-10.4); CARBON DIOXIDE 20 mEq/l (22-31); CHLORIDE 111 mEq/L (97-110); CREATININE 0.7 mg/dL (0.6-1.0); ETHANOL SERUM < 10 mg/dL (0-10); GLOMERULAR FILTRATION RATE > 60; GLUCOSE 72 mg/dL (70-100); POTASSIUM 3.4 mEq/L (3.5-5.2); SODIUM 141 mEq/L (134-144)
--- NOTE | 2017-02-25 08:30 | CPEKG ---
Heart Rate: 83 RR Interval: 723 P-R Interval: 124 QRSD Interval: 96 QT Interval: 416 QTC Interval: 489 P Lester: 79 QRS Lester: 72 T Wave Lester: 11 EKG Severity - BORDERLINE ECG - EKG Impression: SINUS RHYTHM EKG Impression: BORDERLINE PROLONGED QT INTERVAL Electronically Signed By: Cristofer Rod 25-Feb-2017 15:33:27
[2017-02-25] MEDS ORDERED: VANCOMYCIN HCL/NORMAL SALINE 250 ML IV ONE (08:44)
[2017-02-25 08:56] LABS: BILIRUBIN,TOTAL 0.4 mg/dL (0.1-1.4)
[2017-02-25 08:57] LABS: INR 1.34 (0.83-1.16); PROTIME(PATIENT) 16.6 SEC (12.0-15.0)
[2017-02-25 08:58] LABS: APTT 43.8 SEC (23.0-38.0)
[2017-02-25 09:22] LABS: MACROCYTES 1+; MICROCYTES 3+
[2017-02-25 09:23] LABS: ELLIPTOCYTES 1+; HYPOCHROMIA 3+; PLATELET ESTIMATE INCREASED (ADEQ)
[2017-02-25] MEDS: NS 1,000 ML IV ONE ×2 (09:55)
[2017-02-25] MEDS ORDERED: ACETAMINOPHEN 325 MG TAB PO PRN (12:39)
[2017-02-25] MEDS ORDERED: diphenhydrAMINE 25 MG CAP PO PRN (12:40)
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
[2017-02-25 13:05] LABS: ALANINE AMINOTRANSFERASE 32 IU/L (9-52); ALBUMIN 2.6 g/dL (3.5-5.0); ALKALINE PHOSPHATASE 78 IU/L (38-126); ASPARTATE AMINOTRANSFERASE 37 IU/L (14-46); BILIRUBIN,TOTAL 0.4 mg/dL (0.1-1.4); BILIRUBIN-CONJUGATED 0.2 mg/dL (0.0-0.5); BILIRUBIN-UNCONJUGATED 0.2 mg/dL (0.0-1.1); TOTAL PROTEIN 5.9 g/dL (6.3-8.2)
[2017-02-25 13:09] LABS: IRON < 10.1 mcg/dL (37.0-170.0)
[2017-02-25] MEDS ORDERED: QUEtiapine FUMARATE 50 MG TAB PO ONE (13:12)
[2017-02-25 13:15] LABS: % SATURATION 3 % (20-55); TOTAL IRON BINDING CAPACITY 304 ug/dL (260-490)
[2017-02-25 13:39] LABS: FERRITIN - BCH 83.6 ng/mL (6.2-264.0)
[2017-02-25 14:06] LABS: PROCALCITONIN 5.02 ng/mL (0.02-0.10)
--- NOTE | 2017-02-25 15:02 | WOCRNPDOC ---
WOCRN Advanced Assessment Note - Skin Integrity Problem, Advanced Assess Left Posterior Hip Dressing Type: [employer] Life (x2) Dressing Description: Intact, Shadowed Closure Description: Approximated (for the majority of the incision line), Not Approximated (Small area the size of a pencil tip) Exudate Amount: Excessive Exudate Characteristic(s): Purulent Integumentary Issue Intervention: Dressing Changed Rita Wound Tissue: Erythema, Painful/Tender Wound Bed Constitution: Tunneling (unknown depth) Site Measurement - Head-to-Toe Length X Width X Depth (cm): 0.2x0.2x unknown Skin Integrity Problem Comment: Patient unable to stay in one position during assessment and a full exploration of the area was impossible. The area has a small opening with gross purulence draining. The drainage increases with the patient moving her leg. Patient will likely need I and D of the area. Recommend surgical consult. For now cover with 4x4 gauze and secure with tape. Wound care will check in later this week.
[2017-02-25 15:29] LABS: PHENCYCLIDINE URINE BCH < 6 ng/ml (NEGATIVE); PHENCYCLIDINE URINE BCH NEGATIVE (NEGATIVE); TETRAHYDROCANNABINOL URINE 6 ng/mL (NEGATIVE); TETRAHYDROCANNABINOL URINE NEGATIVE (NEGATIVE)
[2017-02-25 15:52] VITALS: BP 123/101; PULSE 111; RESP 13; TEMP 98.1; O2SAT 99
--- NOTE | 2017-02-25 15:53 | ASMTCMCOM ---
CM Note CM Note Notes: 36 year old female admitted for AMS, Hypothermia, L hip draining, rash, anemia, polysubstance use.. Patient has a hx of numerous L hip replacements S/P hardware removal-MRSA 12/16, PTSD, severe anxiety. Wound Care recommending surgical I & D. CM to follow for discharge needs. Date Signed: 02/25/2017 03:52 PM Electronically Signed By:Moon Nielsen LCSW
[2017-02-25] MEDS ORDERED: clonazePAM 1 MG TAB PO SCH (16:00)
[2017-02-25] MEDS ORDERED: GABAPENTIN 300 MG CAP PO SCH (16:00)
[2017-02-25] MEDS ORDERED: QUEtiapine FUMARATE 50 MG TAB PO SCH (21:00)
--- NOTE | 2017-02-26 08:55 | HOSPPROG ---
Hospitalist Progress Note Assessment/Plan: Pt apparently left AMA overnight Blood cultures growing Gram Positives I attempted to call the phone number listed in [employer] and received a message that the "number isn't taking calls" Left message for next of Kin Iban to help in notifying patient Objective: Vital Signs Temp Pulse Resp BP Pulse Ox 36.7 C 111 H 13 123/101 H 99 02/25/17 15:50 02/25/17 15:50 02/25/17 15:50 02/25/17 15:50 02/25/17 15:50 02/25/17 02/26/17 02/27/17 05:59 05:59 05:59 Intake Total 1999 Balance 1999 PT 16.6 SEC (12.0-15.0) H 02/25/17 08:00 INR 1.34 (0.83-1.16) H 02/25/17 08:00 ICD10 Worksheet Patient Problems: Problems Problem Status Onset Altered mental status Acute Polysubstance abuse Acute Hypothermia Acute Microcytic anemia Acute
--- NOTE | 2017-02-26 17:34 | ASDISCHSUM ---
Discharge Information Plan Status:Home with No Needs Medically Cleared to Leave:02/24/2017 Discharge Date:02/25/2017 06:54 PM D/C Disposition:Home, Routine, Self-Care ADT D/C Disposition:Against Medical Advice Projected Discharge Date:02/25/2017 12:00 AM Transportation at D/C:Friend Discharge Delay Reason: Follow-Up Date:02/25/2017 12:00 AM Discharge Slot: Final Diagnosis:Infection, polysubstance use, Hypothermia, Anemia Placement Information Patient Contact Information Contact Name:MARA Relationship:Father Address: Work Phone: City: [facility] Phone: [facility]/[employer] Code: Email: Financial Information Financial Class: Primary Plan Desc:[employer] Primary Plan Number:[id number] Secondary Plan Desc: Secondary Plan Number: Assessment Information [facility] CM Progress Note CM Note CM Note Notes: 36 year old female admitted for AMS, Hypothermia, L hip draining, rash, anemia, polysubstance use.. Patient has a hx of numerous L hip replacements S/P hardware removal-MRSA 12/16, PTSD, severe anxiety. Wound Care recommending surgical I & D. CM to follow for discharge needs. Date Signed: 02/25/2017 03:52 PM Electronically Signed By:Moon Nielsen LCSW Case Management Discharge Plan Note Case Management Discharge Discharge Order Complete? Answers: Yes Patient to Obtain Answers: Independently Medications Transportation Arranged Answers: Family/Friends Discharge Comments Notes: Patient insistent on going home. Called a friend for transport. Left AMA Date Signed: 02/26/2017 05:34 PM Electronically Signed By:Moon Nielsen LCSW Intervention Information Intervention Type:*Incorrect Registration Date of Service:02/26/2017 10:00 AM Patient Type:Observation Staff Member:JOSH Herrera Susan Hours: Discipline: Severity: Comment:
== END 2017-02-25 18:54 | disposition left against medical advice (07) ==
LOC: EDBD 07:41 → MERGE 09:25 → INTOOBSV 09:25 → F2N 10:15
PROVIDERS: ADMIT Family Medicine; ATTEND Family Medicine
DX: R41.82 Altered mental status, unspecified (principal); F15.10 Other stimulant abuse, uncomplicated; Z96.642 Presence of left artificial hip joint; F17.210 Nicotine dependence, cigarettes, uncomplicated
CPT/HCPCS: 70450; 72170; 93005; G0378; 80307; 96365; G0472; G0480; J0696; J1100; J3370

== ENCOUNTER 2017-06-15 16:49 | Inpatient (IN) | payer MEDICAID ==
--- NOTE | 2017-06-15 19:39 | EDPHY ---
HPI/HX/ROS/PE/MDM Narrative: CHIEF COMPLAINT: Left hip pain HISTORY OF PRESENT ILLNESS: The patient is a 37 y/o female with a history of MRSA and a left total hip arthroplasty with multiple revisions complaining of left hip pain. 1.5 years ago her artificial hip was removed, but she continued to have inflammation and redness near the surgery site. On 06/12/17, 3 days ago, she had an I&D preformed by Dr. Shelley De La Torre at [facility] on the left hip. This was her first I&D for the hip. She states she lost her Augmentin and pain prescriptions. She reports having significant drainage from the I and D site. Denies fevers. Does report increased pain. Also notes that multiple sutures are broken. She has not contacted her surgeon regarding the pain or loss of prescriptions. Last took Tylenol at 07:30, 12 hours ago. No fever, chills, chest pain, shortness of breath, palpitations, vomiting, diarrhea, urinary complaints, headache, lightheadedness. REVIEW OF SYSTEMS: Aside from elements discussed in the HPI, a comprehensive 10-point review of systems was reviewed and is negative. PAST MEDICAL HISTORY: Status post total hip arthroplasty with multiple revisions , asthma, MRSA SOCIAL HISTORY: Lives in [place], , smoker VITAL SIGNS: Reviewed by me GENERAL: Thin, somewhat anxious, no respiratory distress. Tearful. HEENT: Atraumatic. Eyes: No icterus, no injection. Mouth: moist mucous membranes. No erythema or lesions. Neck: supple with no adenopathy. LUNGS: Clear to auscultation bilaterally, no wheezes, rhonchi or rales. CARDIAC: Regular rate and rhythm, no rubs, murmurs or gallops. ABDOMEN: Soft, nontender, nondistended, bowel sounds normal. BACK: No CVA tenderness. EXTREMITIES: Left Hip: 2 cm incision site that has dehisced and is draining serous fluid. Surrounding erythema, tenderness, warmth. No trauma. Range of motion is normal throughout. NEURO: Alert and oriented, grossly nonfocal. SKIN: Warm and dry, no rash. PSYCHIATRIC: Normal mentation, no agitation. Portions of this note were transcribed by a biomedical engineering aide. I personally performed a history, physical exam, medical decision making, and confirmed accuracy of information the transcribed note. ED Course: The patient is a 37 y/o female with a history of MRSA and a left total hip arthroplasty with multiple revisions complaining of left hip pain secondary to an I&D 2 days ago. On exam she has a 2 cm incision site on her left hip that has dehisced and is draining serous fluid. There is surrounding erythema, tenderness, and warmth. I removed the sutures and took a swab for a wound culture. Labs and left hip x-ray ordered. 2009: I reviewed patient's visit at [facility]) from 2 days ago on [facility]ORIO. 2112: Patient is still in pain, 1mg IV Dilaudid administered. 2138: I reviewed patient's left hip x-ray; questionable gas in the soft tissues. Radiologist reading still pending. 2149: Patient is anxious; 1mg IV Ativan administered. 2217: Lower extremity hip MRI with IV contrast ordered to further investigate the left hip. 6: 1 tab PO Bactrim and 1gm Ancef administered. Review of the patient's records demonstrates that her last blood cultures positive for MRSA was in January 2017 and that time it was sensitive to clindamycin. Clindamycin 600 mg IV was given IV. CT scan demonstrates a complex soft tissue mass with pockets of gas deep in the left hip at the area where the prosthesis has been removed. Patient's course was discussed with Dr. Perdomo. Dr. Branham was paged to request consultation. Dr. Higgins will speak to him when he calls back. She was admitted to the hospital for ongoing care of her hip pain, serosanguineous drainage, potential abscess, potential deep space infection. MDM: Differential diagnoses for the patient's symptom complex was considered including but not limited to wound dehiscence, wound infection, deep space infection, MRSA, septicemia. - Data Points Imaging Results: CT Pelv: Complex collection left hip region s/p surgical removal of hip arthroplasty with gas bubbles Tract leads to skin surface laterally No additional abnormality Spoke w Dr Gallagher at 1236am Finer Imaging: Discussed imaging studies w/ will call order clerk Radiologist, I viewed and interpreted images myself Laboratory Results: Laboratory Results 06/15/17 21:43 06/15/17 21:43 Medications Given: Diphenhydramine HCl (Benadryl) 25 mg PO Q6HRS PRN PRN Reason: Itching Stop: 12/13/17 03:24 Last Admin: 06/16/17 04:44 Dose: 25 mg Potassium Chloride/Dextrose/Sod Cl (D5w 1/2 Ns W/ 20 Kcl/L) 1,000 mls @ 100 mls /hr IV CONT DOMITILA Stop: 12/13/17 03:14 Last Admin: 06/16/17 03:45 Dose: 1,000 mls Oxycodone HCl (Oxycodone Ir) 5 - 10 mg PO Q4HRS PRN PRN Reason: Pain, Severe Able to Take PO Stop: 06/26/17 01:27 Last Admin: 06/16/17 10:56 Dose: 10 mg Discontinued Medications Diazepam (Valium) 5 mg PO ONCE ONE Stop: 06/16/17 01:27 Last Admin: 06/16/17 01:37 Dose: 5 mg Gabapentin (Neurontin) 300 mg PO ONCE ONE Stop: 06/16/17 01:25 Last Admin: 06/16/17 01:36 Dose: 300 mg Hydromorphone HCl (Dilaudid) 1 mg IVP EDNOW ONE Stop: 06/15/17 21:14 Last Admin: 06/16/17 00:59 Dose: 1 mg Hydromorphone HCl (Dilaudid) 1 mg IVP EDNOW ONE Stop: 06/16/17 00:42 Last Admin: 06/16/17 02:48 Dose: Not Given Cefazolin Sodium/Dextrose (Ancef 1 Gm (Premix)) 50 mls @ 200 mls/hr IV EDNOW ONE PRN Reason: Protocol Stop: 06/15/17 23:50 Last Admin: 06/16/17 00:24 Dose: 50 mls Clindamycin Phosphate/Dextrose (Cleocin 600 Mg (Premix)) 50 mls @ 100 mls/hr IV EDNOW ONE PRN Reason: Protocol Stop: 06/16/17 00:59 Last Admin: 06/16/17 01:00 Dose: 50 mls Lorazepam (Ativan Injection) 1 mg IVP EDNOW ONE Stop: 06/15/17 21:52 Last Admin: 06/15/17 21:58 Dose: 1 mg Quetiapine Fumarate (Seroquel) 100 mg PO ONCE ONE Stop: 06/16/17 01:21 Last Admin: 06/16/17 04:25 Dose: Not Given Quetiapine Fumarate (Seroquel) 50 mg PO ONCE ONE Stop: 06/16/17 02:16 Last Admin: 06/16/17 03:45 Dose: 50 mg Trimethoprim/Sulfamethoxazole (Bactrim Ds) 1 ea PO EDNOW ONE PRN Reason: Protocol Stop: 06/15/17 23:36 Last Admin: 06/16/17 00:23 Dose: 1 ea Microbiology Results: MICROBIOLOGY 06/15/17 20:00 Hip - Swab Gram Stain - Final 06/15/17 20:00 Hip - Swab Wound Culture - Preliminary General Time Seen by Provider: 06/15/17 19:36 Initial Vital Signs: Initial Vital Signs Temperature (C) 36.5 C 06/15/17 16:59 Heart Rate 94 06/15/17 16:59 Respiratory Rate 17 06/15/17 16:59 Blood Pressure 155/92 H 06/15/17 16:59 O2 Sat (%) 95 06/15/17 16:59 O2 Delivery Mode Room Air Allergies/Adverse Reactions: No Known Drug Allergies Allergy (Verified 02/25/17 11:19) vancomycin Allergy (Verified 06/15/17 16:58) Home Medications: Medication Instructions Recorded Albuterol Hfa Anes Only [Proair 1 - 2 puffs IH DAILY PRN 04/23/16 Hfa Icu (*)] Fluticasone Hfa 110 Mcg [Flovent 2 puffs IH BID 04/23/16 110 MCG Hfa MDI (*)] Zolpidem Tartrate [Ambien 5MG (*)] 5 mg PO HS PRN 04/23/16 clonazePAM [klonoPIN (*)] 1 mg PO TID PRN 04/23/16 Diazepam [Valium 5 MG (*)] 5 mg PO QID PRN 06/16/17 Gabapentin [Neurontin 300 MG (*)] 600 mg PO TID 06/16/17 QUEtiapine FUMARATE [Seroquel 100 50 mg PO HS 06/16/17 mg (*)] oxyCODONE/APAP 5/325 [Percocet 1 tab PO Q6 PRN 06/16/17 5/325 (*)] Departure - Departure Disposition: [facility] Inpatient Acute Clinical Impression: Left hip pain, deep space infection left hip Wound dehiscence, surgical Qualifiers: Encounter type: initial encounter Qualified Code(s): T81.31XA - Disruption of external operation (surgical) wound, not elsewhere classified, initial encounter Condition: Fair Report Scribed for: Nica Gallagher Report Scribed by: Daniela Arenas Date of Report: 06/15/17 Time of Report: 19:39
[2017-06-15] MEDS: HYDROmorphONE/DILAUDID 2 MG/ML INJ IVP ONE (21:34)
[2017-06-15] MEDS ORDERED: LORazepam 2 MG/ML INJ IVP ONE (21:51)
[2017-06-15 21:56] LABS: PLATELET COUNT 749 10^3/uL (150-400)
[2017-06-15 22:04] LABS: INR 1.05 (0.83-1.16); PROTIME(PATIENT) 13.9 SEC (12.0-15.0)
[2017-06-15] MEDS ORDERED: SULFAMETHOX/TMP 800/160 MG 1 TAB PO ONE (23:35)
[2017-06-15] MEDS ORDERED: IOPAMIDOL (ISOVUE-300) 100 ML BTL ONE (23:39)
[2017-06-16] MEDS ORDERED: ONDANSETRON 4 MG/2 ML VIAL IVP PRN (00:28)
[2017-06-16] MEDS ORDERED: ONDANSETRON DISINTEGRATING 4 MG TAB PO PRN (00:28)
[2017-06-16] MEDS ORDERED: CLINDAMYCIN 600 MG/DEXTROSE 50 ML IV ONE (00:30)
[2017-06-16] MEDS ORDERED: HYDROmorphONE/DILAUDID 1 MG/ML INJ IVP ONE (00:41)
[2017-06-16] MEDS ORDERED: HYDROmorphONE/DILAUDID 2 MG/ML INJ ONE (00:42)
[2017-06-16] MEDS: HYDROmorphONE/DILAUDID 2 MG/ML INJ IVP ONE (00:59)
[2017-06-16] MEDS ORDERED: QUEtiapine FUMARATE 100 MG TAB PO ONE (01:20)
[2017-06-16] MEDS ORDERED: GABAPENTIN 300 MG CAP PO ONE (01:24)
[2017-06-16] MEDS ORDERED: DIAZEPAM 10 MG TAB PO ONE (01:26)
[2017-06-16] MEDS ORDERED: QUEtiapine FUMARATE 200 MG TAB ONE (01:34)
[2017-06-16] MEDS ORDERED: GABAPENTIN 300 MG CAP ONE (01:34)
[2017-06-16] MEDS ORDERED: DIAZEPAM 5 MG TAB ONE (01:35)
[2017-06-16] MEDS ORDERED: QUEtiapine FUMARATE 50 MG TAB PO ONE (02:15)
[2017-06-16] MEDS ORDERED: D5W 1/2 NS W/ 20 KCl/L 1,000 ML IV SCH (03:15)
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
[2017-06-16] MEDS: oxyCODONE IR 5 MG TAB PO PRN ×4 (04:44→19:35)
[2017-06-16] MEDS: diphenhydrAMINE 25 MG CAP PO PRN (04:44)
[2017-06-16 04:55] LABS: PLATELET COUNT 631 10^3/uL (150-400)
--- NOTE | 2017-06-16 08:16 | WOCRNPDOC ---
WOCRN Advanced Assessment Note - Skin Integrity Problem, Advanced Assess Left Hip Dressing Type: Abdominal Pads, Allevyn Life, Gauze Dressing Description: Intact Exudate Amount: Moderate Exudate Color: Reddish/Yellow Exudate Characteristic(s): Serosanguinous Integumentary Issue Intervention: Visualized Under Dressing Rita Wound Tissue: Erythema, Swollen, Indurated Rita Wound Swelling: Moderate Wound Bed Color: Red, Yellow Wound Bed Constitution: Granulation Tissue, Undermining (0.4cm in medial aspect of wound bed), Subcutaneous Fat Wound Edges: Well Defined Site Odor: None Site Measurement - Head-to-Toe Length X Width X Depth (cm): 3.3cmx1.4cmx0.9cm Skin Integrity Problem Comment: L hip wound s/p I&D, granulation tissue throughout and no necrosis. Significant periwound induration, erythema, and swelling. Cultures pending. No tunneling evident, though there is a discrete area of undermining in the medial wound bed under which I was able to insert a cotton-tipped applicator 0.4cm. Will have nursing initiated daily dressing change this morning, to include collagen, silver packing strip, and outer secondary dressing. business resiliency manager Dorin visualized wound and apprised of plan of care.
--- NOTE | 2017-06-16 08:47 | GCON ---
[f rep st] CONSULTATION REASON FOR CONSULTATION: Left hip. HISTORY OF PRESENT ILLNESS: The patient is a 37-year-old, with a very involved history relative to er left hip. She had a previous total hip arthroplasty and had multiple dislocations. Most recently , she has undergone a resection arthroplasty for infection. Her surgeries have been performed by Dr. Catherine De La Torre in [place]. She presented to the emergency room yesterday with no new acute problems but rather more of a problem managing her condition with her resection arthroplasty. She has had an ope n wound which has been draining, but no new acute issues relative to that. PHYSICAL EXAMINATION: On examination, her left lower leg is significantly shorter than the right. H er distal neurovascular exam is grossly intact. There is approximately a 3 x 1 cm opening through th e mid aspect of her lateral hip incision with some serous drainage. There is no gross purulence or s ignificant erythema surrounding it. IMAGING: AP and lateral radiographs of her hip show evidence of resection arthroplasty. ASSESSMENT: Status post left hip resection arthroplasty with continued drainage. PLAN: It was recommended that she follow up with her treating orthopedist, Dr. De La Torre, upon discharge . There are no indications for an irrigation debridement at this time. A wound VAC could be conside red as a means for closing her lateral hip wound. /[id number]/MODL
--- NOTE | 2017-06-16 15:30 | ASMTCMCOM ---
CM Note CM Note Notes: Met with patient to understand her situation better. She has a long history of issues w her hip, and most recently had an I&D at [facility] on 06/12. She is seen by Dr Catherine De La Torre. She came to our ED complaining of wound dehiscence and needing antibiotics. Per med list, patient on quite a few psychiatric medications. Of note, her tox screen was positive for opiates, benzos, and THC. She says she is permanently disabled, although she only has Medicaid, not Medicare. When I asked her if we could help with a referral to homecare services, she asked if we could get someone to help her do dishes, take out the trash, and walk her dog. I explained that we could help with PT/OT/RN, and she was interested in an RN for wound care. She may be appropriate for HCBS through Medicaid, but I explained that the application process takes a while. We can have our Medicaid specialist screen her for bed bug exterminator Medicaid tomorrow. I told patient that our orthopedist recommended that she follow up with Dr De La Torre. Patient says she wants to find a new doctor because Dr De La Torre "won't fill out any of my paperwork." She has trouble getting to [place] and would like to find someone in [place]. Case Management will follow. Date Signed: 06/16/2017 03:30 PM Electronically Signed By:Rosita Villar RN
[2017-06-16] MEDS ORDERED: ALBUTEROL HFA ANES ONLY 200 PUFFS/8.5 GM MDI IH PRN (15:41)
[2017-06-16] MEDS: GABAPENTIN 300 MG CAP PO SCH ×2 (16:24→20:15)
[2017-06-16] MEDS: DIAZEPAM 5 MG TAB PO PRN ×2 (16:24→21:16)
[2017-06-16] MEDS: clonazePAM 1 MG TAB PO PRN ×2 (16:24→19:36)
[2017-06-16] MEDS ORDERED: DAPTOmycin 400 MG in NS 100 ML IV SCH ×2 (16:30→17:00)
--- NOTE | 2017-06-16 16:48 | HOSPPROG ---
Hospitalist Progress Note Assessment/Plan: DIAGNOSES: -acute infection of chronic left hip wound status post removal of infected left hip prosthesis done elsewhere * Had incision and drainage done at [facility] last week, on updated review of cultures she is going MRSA from there samples -chronic anxiety disorder on medicines for that -she has a microcytic anemia and I would strongly suspect iron deficiency, newly identified problem at this time will need further assessment and treatment -long history of substance abuse currently sober -significant gait instability issues and issues getting transportation to her surgeon in [place] I reviewed the case in detail today with Dr. Gibson Herrera. She has MRSA growing in the wound and has a vancomycin allergy we have decided to start her on daptomycin at this time. Dr. Herrera and Dr. Branham did not feel she needs any further debridement or surgery for her wound at this time but she will need ongoing wound care in addition to treatment for infection. PLANS: -ongoing inpatient care at this time for wound infection -wound care consult -daptomycin, will have further discussions Dr. Herrera about duration of therapy -fall risk precautions -physical and occupational therapy -DVT prophylaxis -will check iron studies began her on iron replacement therapy; presuming that she does actually have iron deficiency she will need assessment for the cause of that SUBJECTIVE: Ongoing pain at her left hip is reasonably well controlled at this time No symptoms of fever at this time Eating well, no respiratory or cardiac symptoms OBJECTIVE Vitals reviewed: Stable without fever Panel Installer, my review: Exam: alert oriented skin warm dry color ok resps not labored lungs clear BSs heart regular abd soft nondistended nontender, bowel sounds present limbs her left hip wound has minimal drainage at this time nothing necrotic no surrounding significant cellulitis; otherwise warm, no edema iv site ok I reviewed her x-rays of her hip today which show no evidence of osteomyelitis, no other concerning features beyond the obvious removal of her left hip Objective: Vital Signs Temp Pulse Resp BP Pulse Ox 36.4 C 104 H 16 91/52 L 95 06/16/17 14:53 06/16/17 14:53 06/16/17 14:53 06/16/17 14:53 06/16/17 14:53 Laboratory Results 06/16/17 04:36 06/16/17 04:36 06/15/17 06/16/17 06/17/17 06:59 06:59 06:59 Output Total 200 Balance -200 PT 13.9 SEC (12.0-15.0) 06/15/17 21:43 INR 1.05 (0.83-1.16) 06/15/17 21:43 - Time Spent With Patient Time Spent with Patient: greater than 35 minutes Time Spent with Patient: Greater than 35 minutes spent on this patients care, greater than 50% of time spent counseling, educating, and coordinating care regarding the above mentioned plan. ICD10 Worksheet Patient Problems: Problems Problem Status Onset Left hip pain Acute Wound dehiscence, surgical Acute Altered mental status Acute Colitis Acute Dislocation of internal left hip prosthesis Acute Hip dislocation, left Acute Hypothermia Acute Influenza A Acute Methicillin resistant Staphylococcus aureus infection Acute ~02/25/17 Microcytic anemia Acute Polysubstance abuse Acute Recurrent dislocation, left hip Acute
--- NOTE | 2017-06-16 17:10 | PCMIDPN ---
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 Brief operative note reviewed in [facility] describes pin hole wound with deep space which was debrided and cultured. Gram stain showed no organisms but culture as of this morning is now showing growth of MRSA. Will begin daptomycin given patient has underlying vancomycin allergy. Prior MRSA isolates in our system were susceptible to daptomycin. Will dose at 8 milligrams/kilogram per day. Check baseline CPK. Will require further conversation with treating orthopedic surgeon at [facility] to further define operative findings and discuss significance of fluid collection noted on CT scan currently which will also define course of antibiotic therapy in terms of need for continued IV antibiotics versus use of oral antibiotics as well as duration of therapy/need for suppressive therapy. Time spent, greater than 35 min, of which greater than half was spent in education/counseling coordination of care related to recurrent left wound infection and growth of MRSA. 06/16/17 17:05 06/16/17 17:16 Subjective: Patient admitted with primary complaint of left hip wound sutures coming out with continued drainage of fluid. Patient followed by Dr. 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 Currently is without indwelling prosthesis. Last seen by Dr. Méndez on 04/22/2017 with notation of chronic drainage of serosanguineous fluid through pin hole in her incision. Recommendation at that time was for repeat incision and drainage based on chronic drainage. Incision and drainage was performed on 06/12/2017 at [facility] with operative findings of pinhole wound and deep space which was debrided and cultured. Cultures when reviewed in [facility] are now showing growth of MRSA. Patient with prior history of allergy to vancomycin which she describes as causing diffuse rash. She has tolerated daptomycin previously. She had been on suppressive amoxicillin and course of Bactrim around time of last visit to Dr. Méndez. She does not note ongoing fever or chills. Continues to have drainage from left hip after sutures came out. CT scan of the hip was performed at time of presentation which showed preliminarily a complex collection in the left hip region with some gas bubbles noted. Based on these findings and history, Infectious Diseases is requested to assist in her ongoing management. Past medical/past surgical/allergies/medication/social history all reviewed. Objective: Vital Signs Temp Pulse Resp BP Pulse Ox 36.4 C 104 H 16 91/52 L 95 06/16/17 14:53 06/16/17 14:53 06/16/17 14:53 06/16/17 14:53 06/16/17 14:53 Laboratory Results 06/16/17 04:36 06/16/17 04:36 06/15/17 06/16/17 06/17/17 05:59 05:59 05:59 Output Total 200 Balance -200 ESR > 145 MM/HR (0-20) H 06/16/17 04:36 C-Reactive Protein 24.0 mg/L (<10.0) H 06/16/17 04:36 - Physical Exam General Appearance: alert, no apparent distress, thin, non-toxic EENT: No scleral icterus, No tonsillar exudate, No conjunctival petechiae Respiratory: lungs clear, No respiratory distress Cardiac/Chest: regular rate, rhythm, systolic murmur (2/6 throughout) Extremities: inflammation (Left hip with small open area along incision line which is packed; mild surrounding erythema around entirety of incision; serous drainage is present on dressing) Abdomen: non-tender, No distended Skin: No embolic lesions ICD10 Worksheet Patient Problems: Problems Problem Status Onset Left hip pain Acute Wound dehiscence, surgical Acute Altered mental status Acute Colitis Acute Dislocation of internal left hip prosthesis Acute Hip dislocation, left Acute Hypothermia Acute Influenza A Acute Methicillin resistant Staphylococcus aureus infection Acute ~02/25/17 Microcytic anemia Acute Polysubstance abuse Acute Recurrent dislocation, left hip Acute
--- NOTE | 2017-06-16 19:03 | PDMN ---
Medical Necessity Medical necessity: C/M review: est. > 2 MN LOS for eval and TX of acute and persistent infection of chronic left hip wound S/P removal of infected left hip prosthesis done elsewhere, microcytic anemia, significant gait instability, requiring Wound Care consult, ongoing IV Daptomycin, fall risk precautions, acute inpt PT/OT, comorbid chronic anxiety, issues getting transportation to see patient's surgeon in [place] per 06/16/2017 Hospitalist progress note.
[2017-06-16] MEDS: QUEtiapine FUMARATE 100 MG TAB PO SCH (20:14)
[2017-06-16] MEDS: FLUTICASONE HFA 110 MCG MDI IH SCH (21:01)
[2017-06-16] MEDS: ZOLPIDEM TARTRATE 5 MG TAB PO PRN (21:16)
[2017-06-16] MEDS: OXYCODONE/APAP 5/325 TAB PO PRN (21:20)
[2017-06-17] MEDS: oxyCODONE IR 5 MG TAB PO PRN ×4 (09:12→22:57)
[2017-06-17] MEDS: GABAPENTIN 300 MG CAP PO SCH ×3 (09:13→22:57)
[2017-06-17] MEDS: FLUTICASONE HFA 110 MCG MDI IH SCH ×2 (09:19→19:31)
[2017-06-17] MEDS: clonazePAM 1 MG TAB PO PRN ×2 (09:23→15:43)
[2017-06-17] MEDS: DIAZEPAM 5 MG TAB PO PRN ×2 (09:24→15:29)
[2017-06-17] MEDS: ACETAMINOPHEN 325 MG TAB PO PRN ×2 (13:25→20:05)
--- NOTE | 2017-06-17 14:05 | PCMIDPN ---
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 Now with known MRSA as the pathogen. Patient on daptomycin due to prior reaction to vancomycin. She still has significant drainage from the area. It is unclear if this drainage will decrease and cease with IV antibiotic alone. If not the patient will likely need another washout. If so that probably needs to be done at [facility] given that her orthopedic surgeon is there. We will continue the daptomycin over the next few days and tract the drainage. If it seems that she needs surgical intervention a transfer is suggested. Of note the patient is quite displeased with [facility] in general due to complaints about non assistance with transportation, etc. Plan: 1. Continue IV daptomycin. 2. Follow wound appearance and drainage amount. 3. Possible transfer to [facility] if surgical need presents. 06/17/17 14:02 Subjective: Patient is somewhat elevated and tearful when discussing her situation. She notes continued drainage from her left hip wound even after she had outpatient surgery for debridement at [facility] last week. She denies any fevers or chills. Objective: Daptomycin # 2 Vital Signs Temp Pulse Resp BP Pulse Ox 37.0 C 87 15 94/49 L 93 06/17/17 12:00 06/17/17 12:00 06/17/17 12:00 06/17/17 12:00 06/17/17 12:00 06/16/17 06/17/17 06/18/17 05:59 05:59 05:59 Intake Total 240 Output Total 475 Balance 240 -475 ESR > 145 MM/HR (0-20) H 06/16/17 04:36 C-Reactive Protein 24.0 mg/L (<10.0) H 06/16/17 04:36 - Physical Exam General Appearance: WD/WN, alert, no apparent distress, non-toxic Respiratory: lungs clear, normal breath sounds, No respiratory distress Cardiac/Chest: regular rate, rhythm, No tachycardia Extremities: inflammation, other (Drainage left hip), No non-tender, No normal inspection Skin: normal color, warm/dry, No rash Neuro/Psych: alert, oriented x 3, No normal mood/affect ICD10 Worksheet Patient Problems: Problems Problem Status Onset Left hip pain Acute Wound dehiscence, surgical Acute Altered mental status Acute Colitis Acute Dislocation of internal left hip prosthesis Acute Hip dislocation, left Acute Hypothermia Acute Influenza A Acute Methicillin resistant Staphylococcus aureus infection Acute ~02/25/17 Microcytic anemia Acute Polysubstance abuse Acute Recurrent dislocation, left hip Acute
--- NOTE | 2017-06-17 18:10 | HOSPPROG ---
Hospitalist Progress Note Assessment/Plan: DIAGNOSES: -acute infection of chronic left hip wound status post removal of infected left hip prosthesis done elsewhere * Had incision and drainage done at [facility] last week, on updated review of cultures she is going MRSA from their samples -chronic anxiety disorder on medicines for that -microcytic anemia and I would strongly suspect iron deficiency, newly identified problem at this time will need further assessment and treatment -long history of substance abuse currently sober -significant gait instability issues and issues getting transportation to her surgeon in [place] PLANS: -ongoing inpatient care at this time for wound infection -wound care nurse consult -daptomycin as she has had significant reactions to vancomycin in the past -fall risk precautions -physical and occupational therapy -DVT prophylaxis -will check iron studies began her on iron replacement therapy SUBJECTIVE: Still with pain at her left hip which seems to be at least close to her chronic level Quite of anxiety today which is a chronic problem for her OBJECTIVE 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, 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: Exam: alert oriented skin warm dry color ok resps not labored lungs clear BSs heart regular abd soft nondistended nontender, bowel sounds present iv site ok Objective: Vital Signs Temp Pulse Resp BP Pulse Ox 36.9 C 89 17 121/91 H 97 06/17/17 16:00 06/17/17 16:00 06/17/17 16:00 06/17/17 16:00 06/17/17 16:00 06/16/17 06/17/17 06/18/17 06:59 06:59 06:59 Intake Total 240 Output Total 475 Balance 240 -475 PT 13.9 SEC (12.0-15.0) 06/15/17 21:43 INR 1.05 (0.83-1.16) 06/15/17 21:43 ICD10 Worksheet Patient Problems: Problems Problem Status Onset Left hip pain Acute Wound dehiscence, surgical Acute Altered mental status Acute Colitis Acute Dislocation of internal left hip prosthesis Acute Hip dislocation, left Acute Hypothermia Acute Influenza A Acute Methicillin resistant Staphylococcus aureus infection Acute ~02/25/17 Microcytic anemia Acute Polysubstance abuse Acute Recurrent dislocation, left hip Acute
[2017-06-17] MEDS: SODIUM FERRIC GLUCONAT/SUCROSE 125 MG in NS 100 ML IV SCH (18:15)
[2017-06-17] MEDS: MULTIVITAMINS 1 EACH TAB PO SCH (18:16)
[2017-06-17] MEDS: NS IV SCH (20:05)
[2017-06-17] MEDS: DAPTOMYCIN IV SCH (20:05)
[2017-06-17] MEDS: QUEtiapine FUMARATE 100 MG TAB PO SCH (20:05)
[2017-06-17] MEDS: ZOLPIDEM TARTRATE 5 MG TAB PO PRN (22:57)
[2017-06-18] MEDS: oxyCODONE IR 5 MG TAB PO PRN ×5 (04:56→21:52)
[2017-06-18] MEDS: clonazePAM 1 MG TAB PO PRN ×3 (04:57→18:04)
[2017-06-18] MEDS: ACETAMINOPHEN 325 MG TAB PO PRN ×2 (05:01→21:51)
[2017-06-18 08:26] LABS: PLATELET COUNT 615 10^3/uL (150-400)
[2017-06-18] MEDS: MULTIVITAMINS 1 EACH TAB PO SCH (09:19)
[2017-06-18] MEDS: GABAPENTIN 300 MG CAP PO SCH ×3 (09:19→21:52)
[2017-06-18] MEDS: SODIUM FERRIC GLUCONAT/SUCROSE 125 MG in NS 100 ML IV SCH (09:21)
[2017-06-18] MEDS: FLUTICASONE HFA 110 MCG MDI IH SCH ×2 (09:27→21:37)
[2017-06-18] MEDS: DIAZEPAM 5 MG TAB PO PRN ×2 (10:32→18:04)
[2017-06-18] MEDS: ALBUTEROL 60 PUFFS/8 GM MDI IH PRN (11:12)
[2017-06-18] MEDS ORDERED: LACTULOSE 20 GM/30 ML UDCUP PO PRN (11:58)
[2017-06-18] MEDS ORDERED: POLYETHYLENE GLYCOL 3350 17 GM PKT PO PRN (11:58)
[2017-06-18] MEDS ORDERED: BISACODYL 10 MG SUPP PR PRN (11:58)
[2017-06-18] MEDS ORDERED: MAGNESIUM HYDROXIDE 30 ML UDCUP PO PRN (11:58)
--- NOTE | 2017-06-18 11:58 | HOSPPROG ---
Hospitalist Progress Note Assessment/Plan: 37 yo F with recurrent chronic left hip infection # chronic recurrent left hip wound infection: originally treated at [facility] and found to be growing MRSA, sp I&D at [facility] and her primary surgeon is there. ID following and patient will be treated with IV daptomycin. 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 Old records reviewed and summarized as above. Care plan reviewed with CM. Subjective: no significant overnight events, patient is complaining of anxiety and need to "clean" but understands it isn't safe for her to clean Objective: Vital Signs Temp Pulse Resp BP Pulse Ox 37.0 C 82 16 93/53 L 92 06/18/17 07:59 06/18/17 07:59 06/18/17 07:59 06/18/17 07:59 06/18/17 07:59 Laboratory Results 06/18/17 08:08 06/18/17 08:08 06/17/17 06/18/17 06/19/17 05:59 05:59 05:59 Intake Total 240 1100 Output Total 475 Balance 240 625 PT 13.9 SEC (12.0-15.0) 06/15/17 21:43 INR 1.05 (0.83-1.16) 06/15/17 21:43 awake alert nad anicteric op clear rrr no mrg cta b soft nt nd no cce warm dry well perfused ICD10 Worksheet Patient Problems: Problems Problem Status Onset Colitis Acute Influenza A Acute Recurrent dislocation, left hip Acute Dislocation of internal left hip prosthesis Acute Hip dislocation, left Acute Left hip pain Acute Wound dehiscence, surgical Acute Altered mental status Acute Polysubstance abuse Acute Hypothermia Acute Microcytic anemia Acute Methicillin resistant Staphylococcus aureus infection Acute ~02/25/17
[2017-06-18] MEDS: OXYCODONE/APAP 5/325 TAB PO PRN (12:58)
--- NOTE | 2017-06-18 14:34 | PCMIDPN ---
Assessment/Plan: Assessment/Plan: 1. Chronic recurrent left hip wound infection: - Cultures with MRSA from 06/12/17 at [facility]. Had I & D there. -Currenlty on dapto (due to vanco allergy) - cpk stable on 05/30/17 - blood cx ngtd - check LFt, cpk periodically while on dapto. - will follow to see if needs further surgical intervention or now. - primary ortho surgeon is at [facility]. Meds dapto 400mg daily- 06/16/17 Subjective: afebrile. denies sob, abd pain or diarrhea. left hip with drainage. Objective: Vital Signs Temp Pulse Resp BP Pulse Ox 37.0 C 82 16 93/53 L 92 06/18/17 07:59 06/18/17 07:59 06/18/17 07:59 06/18/17 07:59 06/18/17 07:59 Laboratory Results 06/18/17 08:08 06/18/17 08:08 06/17/17 06/18/17 06/19/17 05:59 05:59 05:59 Intake Total 240 1100 Output Total 475 Balance 240 625 ESR > 145 MM/HR (0-20) H 06/16/17 04:36 C-Reactive Protein 24.0 mg/L (<10.0) H 06/16/17 04:36 - Physical Exam General Appearance: alert, no apparent distress Respiratory: lungs clear Cardiac/Chest: regular rate, rhythm Extremities: swelling Abdomen: normal bowel sounds, non-tender, soft, No distended Skin: erythema (left hip: erythema around wound which has some chronic pigmentary look to it as well. some induraiton present as well. wound packed. ) ICD10 Worksheet Patient Problems: Problems Problem Status Onset Left hip pain Acute Wound dehiscence, surgical Acute Altered mental status Acute Colitis Acute Dislocation of internal left hip prosthesis Acute Hip dislocation, left Acute Hypothermia Acute Influenza A Acute Methicillin resistant Staphylococcus aureus infection Acute ~02/25/17 Microcytic anemia Acute Polysubstance abuse Acute Recurrent dislocation, left hip Acute
[2017-06-18] MEDS: SENNOSIDES/DOCUSATE SODIUM TAB PO SCH (21:51)
[2017-06-18] MEDS: DAPTOMYCIN IV SCH (21:51)
[2017-06-18] MEDS: NS IV SCH (21:51)
[2017-06-18] MEDS: QUEtiapine FUMARATE 100 MG TAB PO SCH (21:52)
[2017-06-18] MEDS: ZOLPIDEM TARTRATE 5 MG TAB PO PRN (22:12)
[2017-06-18] MEDS: diphenhydrAMINE 25 MG CAP PO PRN (22:12)
[2017-06-19] MEDS: FLUTICASONE HFA 110 MCG MDI IH SCH ×2 (08:38→21:32)
[2017-06-19] MEDS: SODIUM FERRIC GLUCONAT/SUCROSE 125 MG in NS 100 ML IV SCH (09:28)
[2017-06-19] MEDS: ACETAMINOPHEN 325 MG TAB PO PRN ×3 (09:28→21:57)
[2017-06-19] MEDS: GABAPENTIN 300 MG CAP PO SCH ×3 (09:28→21:58)
[2017-06-19] MEDS: SENNOSIDES/DOCUSATE SODIUM TAB PO SCH ×2 (09:28→20:56)
[2017-06-19] MEDS: MULTIVITAMINS 1 EACH TAB PO SCH (09:29)
[2017-06-19] MEDS: clonazePAM 1 MG TAB PO PRN ×3 (09:30→21:58)
[2017-06-19] MEDS: oxyCODONE IR 5 MG TAB PO PRN ×4 (09:33→21:58)
--- NOTE | 2017-06-19 12:15 | WOCRNPDOC ---
WOCRN Advanced Assessment Note - Skin Integrity Problem, Advanced Assess Left Hip Dressing Type: ABD Pad, Allevyn Life, Packing Dressing Description: Intact, Saturated Exudate Amount: Moderate Exudate Color: Yellow Exudate Characteristic(s): Cloudy, Seropurulent Integumentary Issue Intervention: Dressing Changed, Dressing Initialed & Dated Rita Wound Tissue: Erythema, Scarred Rita Wound Swelling: None Wound Bed Constitution: Red/[place] - Non Granular Tissue, Tunneling (4.5 cm at 1 oclock), Adhered Slough Site Measurement - Head-to-Toe Length X Width X Depth (cm): 2.1x3.6x7.3 Skin Integrity Problem Comment: Allevyn life saturated with seropurulent drainage. Wound dehiscence with 7.3 cm depth which is much deeper than the 0.4 cm noted on admission. There is a canyon at the base of the wound and the wound extends there from the midline toward 1 oclock where it measures 4.5 cm. Flushed wound with ns. Repacked with 1/2 inch algidex packing and covered with gauze and then ABD. Reported to JOSH Sharpe. Patient may benefit from the wound bed being opened up and debrided to healthy tissue and then having a wound vac placement. Unable to vac at this time as opening to canyon it too narrow and wound bed cannot be visualized past the mouth of the canyon. Wound care will round again next week. Please reconsult wound care if patient goes to OR or there is new issues before then.
[2017-06-19] MEDS: DIAZEPAM 5 MG TAB PO PRN (14:16)
--- NOTE | 2017-06-19 15:30 | PCMIDPN ---
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 MRSA as the pathogen. Patient on daptomycin due to prior reaction to vancomycin. She still has significant drainage from the area although this is greatly decreased from 2 days ago. It is unclear if this drainage will decrease and cease with IV antibiotic alone. If not the patient will likely need another washout. If so that probably needs to be done at [facility] given that her orthopedic surgeon Dr. Shelley De La Torre is there. We will continue the daptomycin over the next few days and tract the drainage. If it seems that she needs surgical intervention a transfer is suggested. Plan: 1. Continue IV daptomycin. 2. Follow wound appearance and drainage amount. 3. Possible transfer to [facility] if surgical need presents. 06/17/17 14:02 06/19/17 15:28 Subjective: Patient is resting in her hospital bed. She remains somewhat labile as far as mood goes. Denies fevers or chills. States the drainage is improved. She states that it is improved secondary to wound packing. Wound Care note reviewed. Objective: Daptomycin # 4 Vital Signs Temp Pulse Resp BP Pulse Ox 37.2 C 98 18 123/101 H 99 06/19/17 15:11 06/19/17 15:11 06/19/17 15:11 06/19/17 15:11 06/19/17 15:11 Laboratory Results 06/18/17 08:08 06/18/17 08:08 06/18/17 06/19/17 06/20/17 05:59 05:59 05:59 Intake Total 1100 1675 Output Total 475 2 Balance 625 1673 ESR > 145 MM/HR (0-20) H 06/16/17 04:36 C-Reactive Protein 24.0 mg/L (<10.0) H 06/16/17 04:36 - Physical Exam General Appearance: WD/WN, alert, no apparent distress, non-toxic Respiratory: lungs clear, normal breath sounds, No respiratory distress Cardiac/Chest: regular rate, rhythm, No tachycardia Extremities: non-tender, erythema, No normal inspection, No necrosis, No other ( Drainage left hip) Skin: normal color, warm/dry, No rash Neuro/Psych: alert, No normal mood/affect ICD10 Worksheet Patient Problems: Problems Problem Status Onset Left hip pain Acute Wound dehiscence, surgical Acute Altered mental status Acute Colitis Acute Dislocation of internal left hip prosthesis Acute Hip dislocation, left Acute Hypothermia Acute Influenza A Acute Methicillin resistant Staphylococcus aureus infection Acute ~02/25/17 Microcytic anemia Acute Polysubstance abuse Acute Recurrent dislocation, left hip Acute
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
[2017-06-19] MEDS: DAPTOMYCIN IV SCH (20:48)
[2017-06-19] MEDS: NS IV SCH (20:48)
[2017-06-19] MEDS: diphenhydrAMINE 25 MG CAP PO PRN (20:49)
[2017-06-19] MEDS: QUEtiapine FUMARATE 50 MG TAB PO SCH (20:49)
[2017-06-20] MEDS: oxyCODONE IR 5 MG TAB PO PRN ×5 (05:18→22:26)
[2017-06-20] MEDS: clonazePAM 1 MG TAB PO PRN ×4 (05:19→22:26)
[2017-06-20] MEDS: DIAZEPAM 5 MG TAB PO PRN ×4 (06:19→17:11)
[2017-06-20] MEDS: ALBUTEROL 60 PUFFS/8 GM MDI IH PRN (09:07)
[2017-06-20] MEDS: FLUTICASONE HFA 110 MCG MDI IH SCH ×2 (09:07→20:49)
[2017-06-20] MEDS: SODIUM FERRIC GLUCONAT/SUCROSE 125 MG in NS 100 ML IV SCH (09:32)
[2017-06-20] MEDS: GABAPENTIN 300 MG CAP PO SCH ×3 (09:33→20:54)
[2017-06-20] MEDS: MULTIVITAMINS 1 EACH TAB PO SCH (09:33)
[2017-06-20] MEDS: SENNOSIDES/DOCUSATE SODIUM TAB PO SCH ×2 (09:34→20:54)
--- NOTE | 2017-06-20 10:31 | PCMIDPN ---
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 MRSA as the pathogen. Patient on daptomycin due to prior reaction to vancomycin. She still has significant drainage from the area although this is somewhat decreased during her stay so far. At this point I am worried that the drainage at its plateaued rate necessitates another washout. We are continuing to try to contact Dr. De La Torre at [facility] who is her orthopedic surgeon. We will continue the daptomycin over the next few days and follow the drainage. If it seems that she needs surgical intervention a transfer is suggested. Plan: 1. Continue IV daptomycin. 2. Follow wound appearance and drainage amount. 3. Possible transfer to [facility] if surgical need presents. Subjective: Patient is laying in her hospital bed. She states that her left hip continues to drain. She had to have the dressing reinforced last night and it has leaked through on the posterior aspect again. Patient is quite elevated in her mood which is her baseline. She does not want to go back to [facility] although it is unclear whether an orthopedic surgeon here would be willing to directly take over the case for another local orthopedic surgeon. Objective: Daptomycin # 5 Vital Signs Temp Pulse Resp BP Pulse Ox 36.6 C 82 18 102/62 94 06/20/17 08:00 06/20/17 09:10 06/20/17 09:10 06/20/17 08:00 06/20/17 09:10 Laboratory Results 06/18/17 08:08 06/18/17 08:08 06/19/17 06/20/17 06/21/17 05:59 05:59 05:59 Intake Total 1675 640 Output Total 2 Balance 1673 640 ESR > 145 MM/HR (0-20) H 06/16/17 04:36 C-Reactive Protein 24.0 mg/L (<10.0) H 06/16/17 04:36 - Physical Exam General Appearance: WD/WN, alert, no apparent distress, non-toxic Cardiac/Chest: regular rate, rhythm, No tachycardia Extremities: non-tender, erythema (Minimal surrounding erythema around the left hip dehisced wound.), other (Continued copious serous drainage from the left hip wound.), No normal inspection Skin: normal color, warm/dry, No rash Neuro/Psych: alert, oriented x 3, No normal mood/affect ICD10 Worksheet Patient Problems: Problems Problem Status Onset Left hip pain Acute Wound dehiscence, surgical Acute Altered mental status Acute Colitis Acute Dislocation of internal left hip prosthesis Acute Hip dislocation, left Acute Hypothermia Acute Influenza A Acute Methicillin resistant Staphylococcus aureus infection Acute ~02/25/17 Microcytic anemia Acute Polysubstance abuse Acute Recurrent dislocation, left hip Acute
--- NOTE | 2017-06-20 13:01 | PDIAF ---
- Diagnosis Diagnosis: left hip infection Code Status: Full Code - Medication Management Discharge Medications: Medications to Continue on Transfer Albuterol Hfa Anes Only [Proair Hfa Icu (*)] 1 - 2 puffs IH DAILY PRN 04/23/16 [ Last Taken Unknown] Fluticasone Hfa 110 Mcg [Flovent 110 MCG Hfa MDI (*)] 2 puffs IH BID 04/23/16 [ Last Taken 04/23/16] Zolpidem Tartrate [Ambien 5MG (*)] 5 mg PO HS PRN 04/23/16 [Last Taken 04/22/16] clonazePAM [klonoPIN (*)] 1 mg PO TID PRN 04/23/16 [Last Taken 06/15/17] Diazepam [Valium 5 MG (*)] 5 mg PO QID PRN 06/16/17 [Last Taken Unknown] Gabapentin [Neurontin 300 MG (*)] 600 mg PO TID 06/16/17 [Last Taken Unknown] QUEtiapine FUMARATE [Seroquel 100 mg (*)] 50 mg PO HS 06/16/17 [Last Taken Unknown] Acetaminophen [Tylenol 325mg (*)] 650 mg PO Q4HRS PRN tab 06/20/17 [Last Taken Unknown] DAPTOmycin [Cubicin] 400 mg IV DAILY@2000 ml 06/20/17 [Last Taken Unknown] Ondansetron HCl Pf [Zofran 4 mg Inj (*)] 4 mg IVP Q4HRS PRN vial 06/20/17 [ Last Taken Unknown] Ondansetron Odt [Zofran Odt 4 mg (*)] 4 mg PO Q4HRS PRN tab 06/20/17 [Last Taken Unknown] Polyethylene Glycol 3350 [Miralax 17 gm (*)] 17 gm PO DAILY PRN pkt 06/20/17 [ Last Taken Unknown] Sennosides/Docusate Sodium [Senokot-S] 1 - 2 tab PO BID tab 06/20/17 [Last Taken Unknown] oxyCODONE IR [Oxycodone Ir (*)] 5 - 10 mg PO Q4HRS PRN tab 06/20/17 [Last Taken Unknown] oxyCODONE/APAP 5/325 [Percocet 5/325 (*)] 1 tab PO Q6 PRN tab 06/20/17 [Last Taken Unknown] Discharge Medications: Refer to the Discharge Home Medication list for PRN reason. - Orders Services needed: Registered Nurse, Certified Finish Molder, Physical Therapy, Occupational Therapy Isolation Type: Contact Isolation Diet Recommendation: no restrictions on diet Diet Texture: Regular Texture Diet - Follow Up Care Current Providers and Referrals: DAKOTA PENALOZA [Other] - As per Instructions
--- NOTE | 2017-06-20 13:14 | HOSPPROG ---
Hospitalist Progress Note Assessment/Plan: #Recurrent left hip infection -Dr Méndez and I evaluated patient today and agree that transfer to [facility] for wash out is warranted for source control -cont Dapto, check LFTs, CK #Anxiety, psychiatric d/o NOS: resume home meds #Iron deficiency anemia: s/p 5 days iron #h/o polysubstance abuse: minimize narcotic use #Disp: safe for DC to [facility] Subjective: significant drainage from hip wound Objective: Vital Signs Temp Pulse Resp BP Pulse Ox 36.6 C 82 18 102/62 94 06/20/17 08:00 06/20/17 09:10 06/20/17 09:10 06/20/17 08:00 06/20/17 09:10 Laboratory Results 06/18/17 08:08 06/18/17 08:08 06/19/17 06/20/17 06/21/17 05:59 05:59 05:59 Intake Total 1675 640 Output Total 2 Balance 1673 640 PT 13.9 SEC (12.0-15.0) 06/15/17 21:43 INR 1.05 (0.83-1.16) 06/15/17 21:43 - Physical Exam Constitutional: other (anxious, cyring) Eyes: PERRL Ears, Nose, Mouth, Throat: moist mucous membranes Cardiovascular: regular rate and rhythym, no murmur, rub, or gallop Respiratory: no respiratory distress, no rales or rhonchi Gastrointestinal: normoactive bowel sounds Genitourinary: No garcia in urethra Musculoskeletal: other (left hip wound with significant drainage, serosanginous with mild surrounding redness) Psychiatric: anxious, poor insight ICD10 Worksheet Patient Problems: Problems Problem Status Onset Left hip pain Acute Wound dehiscence, surgical Acute Altered mental status Acute Colitis Acute Dislocation of internal left hip prosthesis Acute Hip dislocation, left Acute Hypothermia Acute Influenza A Acute Methicillin resistant Staphylococcus aureus infection Acute ~02/25/17 Microcytic anemia Acute Polysubstance abuse Acute Recurrent dislocation, left hip Acute
--- NOTE | 2017-06-20 13:41 | GDS ---
[f rep st] DISCHARGE SUMMARY DISCHARGE DIAGNOSES: 1. Recurrent chronic left hip wound infection, methicillin-resistant staphylococcus aureus positive 06/12/2017 at [facility]. 2. Anxiety. 3. History of polysubstance abuse. 4. Psychiatric, not otherwise specified, suspect personality disorder. 5. Iron-deficiency anemia. 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 She is currently without an indwelling prosthesis and was las t seen by Dr. Méndez on 04/22/2017 with notation of chronic drainage of serosanguineous fluid through the pinhole in her incision. She was seen at [facility] 06/12/2017 for planned I and D by Dr. De La Torre without complication per operative note reviewed in [facility]. She presented to the ER here at [facility] with wound dehiscence and having lost her Augmentin pills. CT scan here showed persistent fluid collection and gas level. HOSPITAL COURSE BY PROBLEM: 1. Recurrent left wound hip infection: Gram stain dated from 06/12 is positive for MRSA. She was e valuated by Infectious Disease here and started on IV daptomycin with wound care team following. I d iscussed case with Dr. Méndez today and, given persistent drainage despite antibiotics, washout is wa rranted. He has tried contacting Dr. De La Torre who performed her recent surgery. I have placed a call a s well and spoke to her PA and recommended transfer. Continue IV daptomycin. The patient was initia lly evaluated by Orthopedics here and washout was not warranted initially, but Infectious Disease rec ommends transfer for surgical procedure. Check liver function tests and CPK while on daptomycin. 2. Anxiety, psychiatric disorder, NOS: Will resume her home medications. 3. Pain control with oxycodone. 4. History of polysubstance abuse: She is in remission. 5. Iron deficiency anemia, status post iron infusion. DIET: Regular. DISPOSITION: Patient is stable for transfer to [facility] to her primary orthopedic surgeon, Dr. De La Torre. MEDICATIONS: See medication reconciliation. /[id number]/MODL
--- NOTE | 2017-06-20 16:21 | ASMTCMCOM ---
CM Note CM Note Notes: Plan is for pt to transfer to [facility] for a washout of her hip. [facility] has not accepted pt yet or provided a room number so DC may be delayed until tomorrow (06/21). EMTALA transfer will be filled out at DC. CM will continue to follow Date Signed: 06/20/2017 04:21 PM Electronically Signed By:Jeniffer Tadeo LCSW
[2017-06-20] MEDS: diphenhydrAMINE 25 MG CAP PO PRN (17:11)
[2017-06-20] MEDS: ACETAMINOPHEN 325 MG TAB PO PRN (17:11)
[2017-06-20] MEDS: NS IV SCH (20:07)
[2017-06-20] MEDS: DAPTOMYCIN IV SCH (20:07)
[2017-06-20] MEDS: ZOLPIDEM TARTRATE 5 MG TAB PO PRN (20:54)
[2017-06-20] MEDS: QUEtiapine FUMARATE 50 MG TAB PO SCH (20:54)
[2017-06-20] MEDS: QUEtiapine FUMARATE 100 MG TAB PO SCH (22:27)
[2017-06-21] MEDS: GABAPENTIN 300 MG CAP PO SCH ×3 (08:17→20:52)
[2017-06-21] MEDS: oxyCODONE IR 5 MG TAB PO PRN ×4 (08:17→20:52)
[2017-06-21] MEDS: MULTIVITAMINS 1 EACH TAB PO SCH (08:18)
[2017-06-21] MEDS: SENNOSIDES/DOCUSATE SODIUM TAB PO SCH ×2 (08:21→20:53)
[2017-06-21] MEDS: DIAZEPAM 5 MG TAB PO PRN ×3 (08:26→17:01)
[2017-06-21] MEDS: ACETAMINOPHEN 325 MG TAB PO PRN ×2 (08:26→17:01)
[2017-06-21] MEDS: clonazePAM 1 MG TAB PO PRN ×3 (08:26→20:51)
[2017-06-21] MEDS: FLUTICASONE HFA 110 MCG MDI IH SCH ×3 (09:24→21:04)
[2017-06-21] MEDS: ALBUTEROL 60 PUFFS/8 GM MDI IH PRN (09:25)
--- NOTE | 2017-06-21 09:40 | HOSPPROG ---
Hospitalist Progress Note Assessment/Plan: #Recurrent left hip infection -clinically stable without fever. MRI pending per Dr. De La Torre at [facility]. Dr. Kwon evaluated and recs suppressive abx and FU outpatient with Dr. De La Torre. -IV Dapto. LFTs stable #Anxiety, psychiatric d/o NOS: resume home meds #Iron deficiency anemia: s/p 5 days iron #h/o polysubstance abuse: minimize narcotic use #Disp: cont inpatient admission for IV abx, MRI pending Subjective: denies fevers, chills Objective: Vital Signs Temp Pulse Resp BP Pulse Ox 36.6 C 68 18 109/54 L 94 06/21/17 07:45 06/21/17 09:28 06/21/17 09:28 06/21/17 07:45 06/21/17 09:28 Laboratory Results 06/18/17 08:08 06/18/17 08:08 06/20/17 06/21/17 06/22/17 05:59 05:59 05:59 Intake Total 640 370 Balance 640 370 PT 13.9 SEC (12.0-15.0) 06/15/17 21:43 INR 1.05 (0.83-1.16) 06/15/17 21:43 - Physical Exam Constitutional: other (anxious) Eyes: PERRL Ears, Nose, Mouth, Throat: moist mucous membranes Cardiovascular: regular rate and rhythym Respiratory: no respiratory distress Gastrointestinal: normoactive bowel sounds Musculoskeletal: other (left hip wound 2x1cm with serosan drainage. ) Neurologic: CN II-XII Intact Psychiatric: other (pressured speeech) ICD10 Worksheet Patient Problems: Problems Problem Status Onset Left hip pain Acute Wound dehiscence, surgical Acute Altered mental status Acute Colitis Acute Dislocation of internal left hip prosthesis Acute Hip dislocation, left Acute Hypothermia Acute Influenza A Acute Methicillin resistant Staphylococcus aureus infection Acute ~02/25/17 Microcytic anemia Acute Polysubstance abuse Acute Recurrent dislocation, left hip Acute
--- NOTE | 2017-06-21 10:09 | PCMIDPN ---
Assessment/Plan: # Complex postoperative wound infection left hip with spacer in place. Cultures at outside hospital showed MRSA. Very rapid dehiscence after I&D on by Dr De La Torre. Significant drainage from open wound continues and increases with movement of the hip. Surgeons at outside hospital requested MR imaging to better understand anatomy. --patient is not acutely ill therefore would try suppressive antibiotic therapy and subsequent debridement/revision by primary surgeons than more definitive IV antibiotic therapy. Patient could be evaluated as an outpatient. --continue daptomycin for now # Abx Allergies: vancomycin Meds Daptomycin 400mg IV daily 06/17, # 5 06/12/17 OR cultures, grew MRSA on 06/17/2017 MRSA: clindamycin JORDYN 0.25, vancomycin JORDYN less than 0.5, Bactrim less than 10, tetracyclines susceptibilities not listed Subjective: Patient with very rapid fire speech complaining of some discomfort left hip and dissatisfaction with the way that dressing changes are undertaken Objective: Vital Signs Temp Pulse Resp BP Pulse Ox 36.6 C 68 18 109/54 L 94 06/21/17 07:45 06/21/17 09:28 06/21/17 09:28 06/21/17 07:45 06/21/17 09:28 Laboratory Results 06/18/17 08:08 06/18/17 08:08 06/20/17 06/21/17 06/22/17 05:59 05:59 05:59 Intake Total 640 370 Balance 640 370 ESR > 145 MM/HR (0-20) H 06/16/17 04:36 C-Reactive Protein 24.0 mg/L (<10.0) H 06/16/17 04:36 - Physical Exam General Appearance: alert, no apparent distress Respiratory: No accessory muscle use Extremities: other (2 x 1 cm open wound L lateral hip with serosang drainage, no surrounding erythema) ICD10 Worksheet Patient Problems: Problems Problem Status Onset Left hip pain Acute Wound dehiscence, surgical Acute Altered mental status Acute Colitis Acute Dislocation of internal left hip prosthesis Acute Hip dislocation, left Acute Hypothermia Acute Influenza A Acute Methicillin resistant Staphylococcus aureus infection Acute ~02/25/17 Microcytic anemia Acute Polysubstance abuse Acute Recurrent dislocation, left hip Acute
[2017-06-21] MEDS ORDERED: GADOBUTROL 10 ML VIAL IVP ONE (12:50)
--- NOTE | 2017-06-21 15:42 | ASMTCMCOM ---
CM Note CM Note Notes: Plan to tx pt to [facility] has changed. Pt will remain at [facility] until DC, which is unclear. Pt's DC needs are also unclear. She is currently on IV ABX. CM to follow. Date Signed: 06/21/2017 03:42 PM Electronically Signed By:Jeniffer Tadeo LCSW
[2017-06-21] MEDS: OXYCODONE/APAP 5/325 TAB PO PRN (19:44)
[2017-06-21] MEDS: DAPTOMYCIN IV SCH (20:49)
[2017-06-21] MEDS: NS IV SCH (20:49)
[2017-06-21] MEDS: QUEtiapine FUMARATE 100 MG TAB PO SCH (20:51)
[2017-06-21] MEDS: diphenhydrAMINE 25 MG CAP PO PRN (21:07)
[2017-06-21] MEDS: ZOLPIDEM TARTRATE 5 MG TAB PO PRN (21:07)
[2017-06-22] MEDS: DIAZEPAM 5 MG TAB PO PRN ×3 (00:07→11:16)
[2017-06-22] MEDS: oxyCODONE IR 5 MG TAB PO PRN ×2 (04:45→11:16)
[2017-06-22 07:59] VITALS: BP 105/51; TEMP 98.6; O2SAT 95
[2017-06-22] MEDS: MULTIVITAMINS 1 EACH TAB PO SCH (08:14)
[2017-06-22] MEDS: GABAPENTIN 300 MG CAP PO SCH (08:14)
[2017-06-22] MEDS: clonazePAM 1 MG TAB PO PRN (08:14)
[2017-06-22] MEDS: OXYCODONE/APAP 5/325 TAB PO PRN (08:15)
[2017-06-22] MEDS: FLUTICASONE HFA 110 MCG MDI IH SCH (08:27)
[2017-06-22 08:33] VITALS: PULSE 82; RESP 16
[2017-06-22] MEDS: SENNOSIDES/DOCUSATE SODIUM TAB PO SCH (10:21)
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
--- NOTE | 2017-06-22 12:43 | PDIAF ---
- Diagnosis Diagnosis: left hip infection Code Status: Full Code - Medication Management Discharge Medications: Medications to Continue on Transfer Albuterol Hfa Anes Only [Proair Hfa Icu (*)] 1 - 2 puffs IH DAILY PRN 04/23/16 [ Last Taken Unknown] Fluticasone Hfa 110 Mcg [Flovent 110 MCG Hfa MDI (*)] 2 puffs IH BID 04/23/16 [ Last Taken 04/23/16] Zolpidem Tartrate [Ambien 5MG (*)] 5 mg PO HS PRN 04/23/16 [Last Taken 04/22/16] clonazePAM [klonoPIN (*)] 1 mg PO TID PRN 04/23/16 [Last Taken 06/15/17] Diazepam [Valium 5 MG (*)] 5 mg PO QID PRN 06/16/17 [Last Taken Unknown] Gabapentin [Neurontin 300 MG (*)] 600 mg PO TID 06/16/17 [Last Taken Unknown] QUEtiapine FUMARATE [Seroquel 100 mg (*)] 50 mg PO HS 06/16/17 [Last Taken Unknown] Acetaminophen [Tylenol 325mg (*)] 650 mg PO Q4HRS PRN tab 06/20/17 [Last Taken Unknown] Ondansetron HCl Pf [Zofran 4 mg Inj (*)] 4 mg IVP Q4HRS PRN vial 06/20/17 [ Last Taken Unknown] Ondansetron Odt [Zofran Odt 4 mg (*)] 4 mg PO Q4HRS PRN tab 06/20/17 [Last Taken Unknown] Polyethylene Glycol 3350 [Miralax 17 gm (*)] 17 gm PO DAILY PRN pkt 06/20/17 [ Last Taken Unknown] Sennosides/Docusate Sodium [Senokot-S] 1 - 2 tab PO BID tab 06/20/17 [Last Taken Unknown] Diazepam [Valium 5 MG (*)] 5 mg PO Q8H #15 tab 06/22/17 [Last Taken Unknown] Sulfamethox/Tmp 800/160 mg [Bactrim Ds] 1 tab PO BID #20 tab 06/22/17 [Last Taken Unknown] oxyCODONE HCL [Oxycodone HCl] 5 mg PO Q6 #20 tablet 06/22/17 [Last Taken Unknown ] Discharge Medications: Refer to the Discharge Home Medication list for PRN reason. - Orders Services needed: Registered Nurse, Certified Brine Mixer Operator, Physical Therapy, Occupational Therapy Isolation Type: Contact Isolation Diet Recommendation: no restrictions on diet Diet Texture: Regular Texture Diet Wound Care Instructions: Dressing change order for L hip: to be changed daily. 1) flush wound w/ normal saline. 2) apply skin prep to surrounding skin. 3) tear off piece of Madelin Promogran Ag and pack into deepest aspect of wound bed using cotton-tipped applicator. 4) gently pack wound w/ Algidex Ag 1/2" packing strip. 5) cover w/ 6x6 Allevyn Life dressing. Please follow up with primary care provider w/in 1 week of DC. [facility]; make an appointment before DC at [phone]. SAGE German - Follow Up Care Current Providers and Referrals: DAKOTA PENALOZA [Other] - As per Instructions
--- NOTE | 2017-06-22 15:24 | ASDISCHSUM ---
Discharge Information Plan Status:Home with Home Health Medically Cleared to Leave:06/22/2017 Discharge Date:06/22/2017 02:21 PM CM D/C Disposition:Home Health Service ADT D/C Disposition:[facility] Projected Discharge Date:06/22/2017 11:00 AM Transportation at D/C:Friend Discharge Delay Reason: Follow-Up Date:06/22/2017 11:00 AM Discharge Slot: Final Diagnosis: Placement Information Referral Type:*Home Health Care Services Referral ID:[id number] Provider Name:[facility] (formerly [facility]) Address 1:[address] [address] Address 2: City:[place] Selection Factors: State:[place] Patient Contact Information Contact Name:MARYCARMEN Relationship:Father Address: Work Phone: City: [facility] Phone: [facility] Code: Email: Financial Information Financial Class:Medicaid Primary Plan Desc[place] Primary Plan Number:[id number] Secondary Plan Desc: Secondary Plan Number: Assessment Information [facility] CM Progress Note CM Note CM Note Notes: Met with patient to understand her situation better. She has a long history of issues w her hip, and most recently had an I&D at [facility] on 06/12. She is seen by Dr Catherine De La Torre. She came to our ED complaining of wound dehiscence and needing antibiotics. Per med list, patient on quite a few psychiatric medications. Of note, her tox screen was positive for opiates, benzos, and THC. She says she is permanently disabled, although she only has Medicaid, not Medicare. When I asked her if we could help with a referral to homecare services, she asked if we could get someone to help her do dishes, take out the trash, and walk her dog. I explained that we could help with PT/OT/RN, and she was interested in an RN for wound care. She may be appropriate for HCBS through Medicaid, but I explained that the application process takes a while. We can have our Medicaid specialist screen her for terminal computer operator Medicaid tomorrow. I told patient that our orthopedist recommended that she follow up with Dr De La Torre. Patient says she wants to find a new doctor because Dr De La Torre "won't fill out any of my paperwork." She has trouble getting to [place] and would like to find someone in [place]. Case Management will follow. Date Signed: 06/16/2017 03:30 PM Electronically Signed By:Rosita Villar RN [facility] CM Progress Note CM Note CM Note Notes: Plan is for pt to transfer to [facility] for a washout of her hip. [facility] has not accepted pt yet or provided a room number so DC may be delayed until tomorrow (06/21). EMTALA transfer will be filled out at [place]. CM will continue to follow Date Signed: 06/20/2017 04:21 PM Electronically Signed By:Jeniffer Tadeo LCSW [facility] CM Progress Note CM Note CM Note Notes: Plan to tx pt to [facility] has changed. Pt will remain at [facility] until DC, which is unclear. Pt's DC needs are also unclear. She is currently on IV ABX. CM to follow. Date Signed: 06/21/2017 03:42 PM Electronically Signed By:Jeniffer Tadeo LCSW Case Management Discharge Plan Note Case Management Discharge Discharge Order Complete? Answers: Yes Patient to Obtain Answers: via Family Medications Transportation Arranged Answers: Family/Friends Faxed Final Orders Answers: Yes Agency/Facility Transfer Answers: Yes Report Printed & Faxed to Receiving Agency Discharge Comments Notes: 06/22/3017 Case Management Note Met w/pt to discuss recommendations for home health agency. Pt in agreement. Faxed referrals to multiple agencies. [facility] accepted pt. faxed final orders to [facility] and confirmed via phone. Pt had friend picker / packer for transport. Date Signed: 06/22/2017 03:23 PM Electronically Signed By:Cassandra Aguayo RN Intervention Information
== END 2017-06-22 14:21 | disposition short-term general hospital (02) | DRG 560 ==
LOC: EDUNIT# → F3N 06-16 01:59 → OBSVTOIN 06-16 18:52 → F1N 06-19 13:50
PROVIDERS: ADMIT Student in an Organized Health Care Education/Training Program; ATTEND Internal Medicine
DX: T84.7XXA Infection and inflammatory reaction due to other internal orthopedic prosthetic devices, implants and grafts, initial encounter (principal); T81.30XA Disruption of wound, unspecified, initial encounter; B95.62 Methicillin resistant Staphylococcus aureus infection as the cause of diseases classified elsewhere; M25.552 Pain in left hip; Z89.622 Acquired absence of left hip joint; D50.9 Iron deficiency anemia, unspecified; F41.8 Other specified anxiety disorders; F43.10 Post-traumatic stress disorder, unspecified; R26.9 Unspecified abnormalities of gait and mobility; F17.210 Nicotine dependence, cigarettes, uncomplicated; F15.11 Other stimulant abuse, in remission; F11.11 Opioid abuse, in remission; J45.909 Unspecified asthma, uncomplicated; Z86.14 Personal history of Methicillin resistant Staphylococcus aureus infection; Z91.419 Personal history of unspecified adult abuse; Z88.1 Allergy status to other antibiotic agents
CPT/HCPCS: 80307; 96374; 97110-GP; 97161-GP; A9585; G0480; J0690; J0878; J1170; J2060; J2916; Q9967

== ENCOUNTER 2017-09-10 18:00 | Emergency (ER) | payer MEDICAID ==
[2017-09-10] MEDS ORDERED: IBUPROFEN 600 MG TAB PO ONE (18:30)
[2017-09-10] MEDS ORDERED: LORazepam 1 MG TAB ONE (18:54)
[2017-09-10 20:58] VITALS: BP 98/54
--- NOTE | 2017-09-10 21:04 | EDPHY ---
H & P Time Seen by Provider: 09/10/17 21:02 HPI/ROS: KAVEH Manuel called me back after talking to Dr. Shelley De La Torre at [facility]. Apparently the patient has been discharged from their group and care will now be given at [facility] Smoking Status: Current every day smoker Constitutional: Initial Vital Signs Temperature (C) 36.4 C 09/10/17 18:15 Heart Rate 108 H 09/10/17 18:15 Respiratory Rate 20 09/10/17 18:15 Blood Pressure 109/72 09/10/17 18:15 O2 Sat (%) 96 09/10/17 18:15 O2 Delivery Mode Room Air Allergies/Adverse Reactions: vancomycin Allergy (Verified 06/15/17 16:58) Home Medications: Medication Instructions Recorded Albuterol Hfa Anes Only [Proair 1 - 2 puffs IH DAILY PRN 04/23/16 Hfa Icu (*)] Fluticasone Hfa 110 Mcg [Flovent 2 puffs IH BID 04/23/16 110 MCG Hfa MDI (*)] Zolpidem Tartrate [Ambien 5MG (*)] 5 mg PO HS PRN 04/23/16 clonazePAM [klonoPIN (*)] 1 mg PO TID PRN 04/23/16 Diazepam [Valium 5 MG (*)] 5 mg PO QID PRN 06/16/17 Gabapentin [Neurontin 300 MG (*)] 600 mg PO TID 06/16/17 QUEtiapine FUMARATE [Seroquel 100 50 mg PO HS 06/16/17 mg (*)] Acetaminophen [Tylenol 325mg (*)] 650 mg PO Q4HRS PRN tab 06/20/17 Ondansetron HCl Pf [Zofran 4 mg 4 mg IVP Q4HRS PRN vial 06/20/17 Inj (*)] Ondansetron Odt [Zofran Odt 4 mg 4 mg PO Q4HRS PRN tab 06/20/17 (*)] Polyethylene Glycol 3350 [Miralax 17 gm PO DAILY PRN pkt 06/20/17 17 gm (*)] Sennosides/Docusate Sodium 1 - 2 tab PO BID tab 06/20/17 [Senokot-S] Diazepam [Valium 5 MG (*)] 5 mg PO Q8H #15 tab 06/22/17 Sulfamethox/Tmp 800/160 mg 1 tab PO BID #20 tab 06/22/17 [Bactrim Ds] oxyCODONE HCL [Oxycodone HCl] 5 mg PO Q6 #20 tablet 06/22/17
--- NOTE | 2017-09-10 22:32 | EDV ---
[f rep st] EMERGENCY DEPARTMENT REPORT CHIEF COMPLAINT: Left hip pain. HISTORY OF PRESENT ILLNESS: The patient is a 37-year-old female with left hip pain. She has had chronic dislocations. She had a hip replacement, and then subsequently apparently it was infected, so she had the hardware removed in May. She has had serous drainage from the left hip since that time. She saw Infectious Disease yesterday, Dr. Méndez, who spoke with the patient's surgeon at [facility], and the plan was for the patient to go to [facility] today for evaluation and admission for anticipation of wash-out. The patient was unable to get to [facility], and so she came to the emergency department tonight. She tells me she has had pain in her left hip for at least one month. She says the leg is warm, but no fever. REVIEW OF SYSTEMS: Complete review of systems is otherwise negative. PAST MEDICAL HISTORY: Left hip dislocation, prosthesis, and surgery, with re- surgery for septic hip May 2017. Patient also has bipolar illness, PTSD, hep C, and osteonecrosis. ALLERGIES: She is allergic to vancomycin. SOCIAL HISTORY: Single, nonsmoker. No alcohol. PHYSICAL EXAM: GENERAL: Alert, well-developed female. VITAL SIGNS: Stable. Afebrile. HEENT: Normal. NECK: Supple, without adenopathy. HEART: Regular rate and rhythm, without murmur or gallop. LUNGS: Clear. ABDOMEN: Soft. EXTREMITIES: Other than hip, normal. Left hip shows serous drainage from her surgical incision, but no evidence for cellulitis or infection. NEUROPSYCH: Normal, though the patient is somewhat anxious. EMERGENCY DEPARTMENT COURSE: I spoke with Dr. Juliann Kwon, on-call for Infectious Disease. I consulted and reviewed Dr. Méndez's notes from clinic yesterday. I spoke with Lucia Manuel, who is the PA for Dr. Shelley Bridges at [facility]. KAVEH Manuel spoke with Dr. Bridges, and then called me back; feels that the patient can be treated as an outpatient. I agree that this is not an emergency. She has an appointment in their office on September 17. Dr. Kwon will see the patient later this week in the Infectious Disease clinic. In the emergency department the patient is given ibuprofen 600 mg, and 1 mg of Ativan for her agitation. X-ray of left hip, reviewed by me, shows surgical removal of the ball of the left femur. In review of this with the patient, we have reviewed x-ray findings, laboratory findings, and consultation with Infectious Disease, and her orthopedist at [facility]. Patient expresses understanding and agreement. MEDICAL DECISION MAKING: I have considered hip dislocation, cellulitis, other deep space infection. CLINICAL IMPRESSION: Left hip pain. PLAN: Home. Follow up with Infectious Disease and orthopedist at [facility]. /[id number]/MODL MTDD
[2017-09-12 10:01] LABS: PLATELET COUNT 579 10^3/uL (150-400)
== END 2017-09-10 19:30 | disposition home or self-care (01) ==
DX: M25.552 Pain in left hip (principal)

== ENCOUNTER 2017-10-21 12:55 | Inpatient (IN) | payer MEDICAID ==
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
[2017-10-21] MEDS ORDERED: fentaNYL 100 MCG/2 ML INJ IVP ONE (14:47)
[2017-10-21] MEDS ORDERED: ONDANSETRON 4 MG/2 ML VIAL IVP ONE (14:47)
[2017-10-21 15:04] LABS: PLATELET COUNT 879 10^3/uL (150-400)
[2017-10-21] MEDS ORDERED: DIAZEPAM 5 MG TAB PO ONE (16:54)
[2017-10-21] MEDS ORDERED: ONDANSETRON DISINTEGRATING 4 MG TAB PO PRN (17:47)
[2017-10-21] MEDS ORDERED: ONDANSETRON 4 MG/2 ML VIAL IVP PRN (17:47)
[2017-10-21] MEDS ORDERED: IOPAMIDOL (ISOVUE-300) 100 ML BTL ONE (17:54)
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
[2017-10-21] MEDS ORDERED: ALBUTEROL HFA ANES ONLY 200 PUFFS/8.5 GM MDI IH PRN (19:44)
[2017-10-21] MEDS ORDERED: clonazePAM 1 MG TAB PO PRN (19:44)
[2017-10-21] MEDS ORDERED: DIAZEPAM 10 MG TAB PO PRN (19:44)
[2017-10-21] MEDS ORDERED: ALBUTEROL 60 PUFFS/8 GM MDI IH PRN (19:52)
[2017-10-21] MEDS: FLUTICASONE HFA 110 MCG MDI IH SCH (20:58)
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
[2017-10-21] MEDS: GABAPENTIN 300 MG CAP PO SCH (22:01)
[2017-10-21] MEDS: CYCLOBENZAPRINE 10 MG TAB PO PRN (22:02)
[2017-10-21] MEDS: FAMOTIDINE 20 MG TAB PO SCH (22:02)
[2017-10-21] MEDS: busPIRone 15 MG TAB PO SCH (22:02)
[2017-10-21] MEDS: QUEtiapine FUMARATE 100 MG TAB PO SCH (22:02)
[2017-10-21] MEDS: ZOLPIDEM TARTRATE 5 MG TAB PO SCH (22:06)
[2017-10-21] MEDS: ACETAMINOPHEN 500 MG TAB PO PRN (22:13)
[2017-10-21] MEDS: KETOROLAC 30 MG/1 ML SDV IVP PRN (22:14)
[2017-10-21] MEDS: clonazePAM 0.5 MG TAB PO PRN (23:52)
[2017-10-22] MEDS: NICOTINE 14 MG/24 HR PATCH TD SCH ×2 (00:23→08:54)
[2017-10-22] MEDS: DIAZEPAM 5 MG TAB PO PRN ×3 (06:17→22:39)
[2017-10-22] MEDS: KETOROLAC 30 MG/1 ML SDV IVP PRN ×3 (06:17→22:38)
[2017-10-22] MEDS ORDERED: GADOBUTROL 10 ML VIAL IVP ONE (07:23)
--- NOTE | 2017-10-22 07:27 | PDMN ---
Medical Necessity Medical necessity: Pt meets IP criteria per MD; est los >2 mn for eval/tx of chronic L hip septic arthritis w/increased pain & drainage, as well as failure to thrive w/inability to ambulate or complete ADLs; requiring further workup/ monitoring, ID/Wound Care consults & therapies; per H&P & order 10/21/17
[2017-10-22] MEDS ORDERED: NON-FORMULARY NEW DRUG (Naproxen [Naproxen] 500 MG) PO SCH (08:00)
[2017-10-22] MEDS: FLUTICASONE HFA 110 MCG MDI IH SCH ×2 (08:40→20:32)
[2017-10-22] MEDS: busPIRone 15 MG TAB PO SCH ×3 (08:53→22:22)
[2017-10-22] MEDS: GABAPENTIN 300 MG CAP PO SCH ×3 (08:53→22:22)
[2017-10-22] MEDS: FAMOTIDINE 20 MG TAB PO SCH ×2 (08:53→22:24)
[2017-10-22] MEDS: MULTIVITAMINS 1 EACH TAB PO SCH (08:53)
[2017-10-22] MEDS: CYCLOBENZAPRINE 10 MG TAB PO PRN ×2 (08:53→17:47)
[2017-10-22] MEDS: clonazePAM 0.5 MG TAB PO PRN ×2 (08:53→17:34)
[2017-10-22] MEDS: FLUTICASONE NASAL 120 SPRAYS/16 GM MDI EACHNARE SCH (08:55)
[2017-10-22] MEDS ORDERED: Herbals/Supplements -Info Only PO SCH (09:00)
[2017-10-22] MEDS: ACETAMINOPHEN 500 MG TAB PO PRN ×2 (09:04→16:21)
[2017-10-22] MEDS: ENOXAPARIN 40 MG/0.4 ML SYR SC SCH (11:09)
--- NOTE | 2017-10-22 14:36 | PCMIDPN ---
Assessment/Plan: # Chronic left hip infection with increasing pain, but radiologic features do not show progression of bone infection but imaging show significant and large inflammatory/infectious process that needs surgical management. Wound culture shows group a strep and MRSA which is not unexpected --hold antibiotics --monitor cultures --likely needs surgery from a limb salvage group at [place], who she recently saw - but doubt she needs hospital to hospital transfer # MRSA: Contact precaution 10/23/17 15:33 Subjective: progressively worsening R hip pain, can't walk anymore Surgery a few months ago, last antibiotic, tablet antibiotic no surgery home nurse TIW Daily fever sometimes fever Objective: Vital Signs Temp Pulse Resp BP Pulse Ox 36.9 C 106 H 18 94/55 L 97 10/22/17 12:00 10/22/17 12:00 10/22/17 12:00 10/22/17 12:00 10/22/17 12:00 10/21/17 10/22/17 10/23/17 05:59 05:59 05:59 Intake Total 800 Output Total 1175 Balance -375 - Physical Exam General Appearance: alert, no apparent distress Respiratory: lungs clear, No accessory muscle use Neck: supple Cardiac/Chest: regular rate, rhythm, No systolic murmur Extremities: other (Left hip without erythema, 1 area of draining sinus with purulent material) Skin: No rash Neuro/Psych: alert, oriented x 3, other (Intermittently tearful and agitated) - Time Spent With Patient Time Spent with Patient: greater than 35 minutes Time Spent with Patient: Greater than 35 minutes spent on this patients care, greater than 50% of time spent counseling, educating, and coordinating care regarding the above mentioned plan. ICD10 Worksheet Patient Problems: Problems Problem Status Onset Left hip postoperative wound infection Acute Altered mental status Acute Colitis Acute Dislocation of internal left hip prosthesis Acute Hip dislocation, left Acute Hypothermia Acute Influenza A Acute Left hip pain Acute Methicillin resistant Staphylococcus aureus infection Acute ~02/25/17 Microcytic anemia Acute Polysubstance abuse Acute Recurrent dislocation, left hip Acute Wound dehiscence, surgical Acute
--- NOTE | 2017-10-22 15:34 | HOSPPROG ---
Hospitalist Progress Note Assessment/Plan: * Chronic hip infection -holding antibiotics -d/w Dr. Kwon - ID to consult -needs further surgery - likely needs transfer to * Microcytic anemia -check iron studies * PTSD -continue home psych meds * Hep C, h/o IVDA -HIV negative in past -denies active use Subjective: No new complaints Objective: Vital Signs Temp Pulse Resp BP Pulse Ox 36.9 C 106 H 18 94/55 L 97 10/22/17 12:00 10/22/17 12:00 10/22/17 12:00 10/22/17 12:00 10/22/17 12:00 10/21/17 10/22/17 10/23/17 05:59 05:59 05:59 Intake Total 800 Output Total 1175 Balance -375 LE MRI - no change from previous Laboratory Tests 10/21/17 14:50 WBC 10.54 H Hgb 10.0 L Hct 31.5 L MCV 75.2 L - Physical Exam Constitutional: no apparent distress, appears nourished, not in pain Cardiovascular: regular rate and rhythym, no murmur, rub, or gallop Respiratory: no respiratory distress, no rales or rhonchi, clear to auscultation Gastrointestinal: normoactive bowel sounds, soft, non-tender abdomen, no palpable masses Skin: no rashes or abrasions, no fluctuance, no induration Neurologic: AAOx3, sensation intact bilaterally Psychiatric: interacting appropriately, not anxious, not encephalopathic, thought process linear ICD10 Worksheet Patient Problems: Problems Problem Status Onset Left hip postoperative wound infection Acute Altered mental status Acute Colitis Acute Dislocation of internal left hip prosthesis Acute Hip dislocation, left Acute Hypothermia Acute Influenza A Acute Left hip pain Acute Methicillin resistant Staphylococcus aureus infection Acute ~02/25/17 Microcytic anemia Acute Polysubstance abuse Acute Recurrent dislocation, left hip Acute Wound dehiscence, surgical Acute
--- NOTE | 2017-10-22 16:14 | ASMTCMCOM ---
CM Note CM Note Notes: Spoke with hospitalist regarding pt's status. Pt not evaluated by PT or OT at this point but reportedly unable to walk on her own. ID and hospitalist indicated pt requires surgery for limb salvation and would need to be transferred to [facility] for surgery with Dr. Harkins. Date Signed: 10/22/2017 04:14 PM Electronically Signed By:Amisha Griffin
[2017-10-22] MEDS: QUEtiapine FUMARATE 100 MG TAB PO SCH ×2 (22:22→22:27)
[2017-10-22] MEDS: ZOLPIDEM TARTRATE 5 MG TAB PO SCH (22:23)
[2017-10-22] MEDS: ACETAMINOPHEN 325 MG TAB PO PRN (22:51)
[2017-10-23] MEDS: KETOROLAC 30 MG/1 ML SDV IVP PRN ×3 (04:24→16:32)
[2017-10-23] MEDS: ACETAMINOPHEN 325 MG TAB PO PRN ×2 (04:24→09:37)
[2017-10-23] MEDS: CYCLOBENZAPRINE 10 MG TAB PO PRN ×3 (04:24→21:39)
[2017-10-23] MEDS: clonazePAM 0.5 MG TAB PO PRN ×2 (05:20→13:27)
[2017-10-23] MEDS: busPIRone 15 MG TAB PO SCH ×3 (08:18→21:38)
[2017-10-23] MEDS: ENOXAPARIN 40 MG/0.4 ML SYR SC SCH (08:18)
[2017-10-23] MEDS: NICOTINE 14 MG/24 HR PATCH TD SCH (08:18)
[2017-10-23] MEDS: MULTIVITAMINS 1 EACH TAB PO SCH (08:19)
[2017-10-23] MEDS: DIAZEPAM 5 MG TAB PO PRN ×2 (08:19→16:32)
[2017-10-23] MEDS: FAMOTIDINE 20 MG TAB PO SCH (08:19)
[2017-10-23] MEDS: GABAPENTIN 300 MG CAP PO SCH ×3 (08:19→21:38)
[2017-10-23] MEDS: FLUTICASONE NASAL 120 SPRAYS/16 GM MDI EACHNARE SCH (08:20)
[2017-10-23] MEDS: FLUTICASONE HFA 110 MCG MDI IH SCH ×2 (08:21→21:40)
[2017-10-23 08:30] LABS: PLATELET COUNT 588 10^3/uL (150-400)
[2017-10-23] MEDS: hydrOXYzine HCL 50 MG TAB PO PRN ×2 (10:31→20:38)
--- NOTE | 2017-10-23 11:32 | WOCRNPDOC ---
WOCRN Advanced Assessment Note - Skin Integrity Problem, Advanced Assess Left Hip Surgical Wound/Incision Dressing Type: ABD Pad, Gauze Dressing Description: Intact, Saturated Exudate Amount: Moderate Exudate Color: Yellow Exudate Characteristic(s): Purulent Integumentary Issue Intervention: Dressing Removed Rita Wound Tissue: Blanching, Erythema Rita Wound Swelling: None Wound Edges: Attached Site Odor: None Site Measurement - Head-to-Toe Length X Width X Depth (cm): proximal 0.6x0.3x1.5. distal 0.7x0.5x1.5 Skin Integrity Problem Comment: Two wounds noted that are approximately 1cm apart from each other. Cleansed wounds with NS and gauze. Moderate amount of purulent drainage noted on the dressing with minimal amount flushed out of wound. Juan Ramon MORENO notified that wound was uncovered when wound care left the room and that Algidex Ag packing would be sent down. Patient was very agitated and frustrated and kept saying "no one cared." Patient stated that hip was very painful, however tolerated wound assessment well. Wound care will round again next week.
[2017-10-23] MEDS: traMADol 50 MG TAB PO PRN (13:27)
--- NOTE | 2017-10-23 16:51 | ASMTLCPROG ---
Notes Note: Notes: TLC requested to meet with pt. for behavioral health support. Pt. experiencing high anxiety impacting her ability to focus on her recovery. Pt. relayed a hx of trauma. Pt. denies any thoughts of self harm but does report high level of frustration and anxiety about her ongoing chronic pain, infection and multiple surgeries. Pt. currently receives [facility] RN services. Discussed with pt. benefits for seeking mental health support. Pt. reports she is familiar with the crisis center and does utilize crisis support when needed in the community. TLC offered resource for on-line meditation she could use while in the hospital to help her relax and focus on her recovery and medical care. Pt. appeared willing to try meditation. Pt. does express forward thinking and appeared to benefit from supportive intervention. Date Signed: 10/23/2017 04:50 PM Electronically Signed By:Ai Ford
--- NOTE | 2017-10-23 16:53 | HOSPPROG ---
Hospitalist Progress Note Assessment/Plan: * Chronic hip infection - need surgery with limb salvage specialist -holding antibiotics per ID -outpatient follow-up at * Microcytic anemia -stable * PTSD -continue home psych meds -escalated when told she would not get surgery during this admission * Hep C, h/o IVDA -HIV negative in past -denies active use Subjective: c/o severe uncontrolled hip pain, new worsening ambulation. Escalated to an extreme emotional state when told plan was discharge with outpatinet follow-up at . Can't afford transportation all the way to [facility] and back. Doesn't have anyone to help her with transportation. Very angry at surgeon at [facility] that she feels deserted her and left her in this very bad situtation Objective: Vital Signs Temp Pulse Resp BP Pulse Ox 37.0 C 113 H 18 125/89 H 94 10/23/17 14:57 10/23/17 14:57 10/23/17 14:57 10/23/17 14:57 10/23/17 14:57 Microbiology 10/22/17 15:00 Gram Stain - Final Hip - Swab Laboratory Results 10/23/17 08:17 10/22/17 10/23/17 10/24/17 05:59 05:59 05:59 Intake Total 800 1660 300 Output Total 1175 1950 Balance -375 -290 300 d/w Dr. Kwon regarding plan for OP f/u at - Time Spent With Patient Time Spent with Patient: greater than 35 minutes Time Spent with Patient: Greater than 35 minutes spent on this patients care, greater than 50% of time spent counseling, educating, and coordinating care regarding the above mentioned plan. - Physical Exam Constitutional: no apparent distress, appears nourished, not in pain Cardiovascular: regular rate and rhythym, no murmur, rub, or gallop Respiratory: no respiratory distress, no rales or rhonchi, clear to auscultation Gastrointestinal: normoactive bowel sounds, soft, non-tender abdomen, no palpable masses Skin: no rashes or abrasions, no fluctuance, no induration Neurologic: AAOx3, sensation intact bilaterally Psychiatric: agitated, No interacting appropriately, No poor insight, No poor judgement, No poor memory (angry but linear in her thoughts) ICD10 Worksheet Patient Problems: Problems Problem Status Onset Left hip postoperative wound infection Acute Altered mental status Acute Colitis Acute Dislocation of internal left hip prosthesis Acute Hip dislocation, left Acute Hypothermia Acute Influenza A Acute Left hip pain Acute Methicillin resistant Staphylococcus aureus infection Acute ~02/25/17 Microcytic anemia Acute Polysubstance abuse Acute Recurrent dislocation, left hip Acute Wound dehiscence, surgical Acute
[2017-10-23] MEDS: QUEtiapine FUMARATE 100 MG TAB PO SCH (21:38)
[2017-10-23] MEDS: ZOLPIDEM TARTRATE 5 MG TAB PO SCH (21:39)
[2017-10-24] MEDS: KETOROLAC 30 MG/1 ML SDV IVP PRN ×4 (01:54→16:46)
[2017-10-24] MEDS: traMADol 50 MG TAB PO PRN ×3 (01:54→21:07)
[2017-10-24 06:22] LABS: PLATELET COUNT 750 10^3/uL (150-400)
[2017-10-24] MEDS: CYCLOBENZAPRINE 10 MG TAB PO PRN ×2 (09:14→17:37)
[2017-10-24] MEDS: MULTIVITAMINS 1 EACH TAB PO SCH (09:14)
[2017-10-24] MEDS: busPIRone 15 MG TAB PO SCH ×3 (09:14→21:08)
[2017-10-24] MEDS: GABAPENTIN 300 MG CAP PO SCH ×3 (09:14→21:07)
[2017-10-24] MEDS: NICOTINE 14 MG/24 HR PATCH TD SCH (09:14)
[2017-10-24] MEDS: ENOXAPARIN 40 MG/0.4 ML SYR SC SCH (09:15)
[2017-10-24] MEDS: clonazePAM 0.5 MG TAB PO PRN ×2 (09:15→17:38)
[2017-10-24] MEDS: FLUTICASONE NASAL 120 SPRAYS/16 GM MDI EACHNARE SCH (09:16)
[2017-10-24] MEDS: FLUTICASONE HFA 110 MCG MDI IH SCH ×2 (09:18→20:57)
--- NOTE | 2017-10-24 12:36 | PCMIDPN ---
Assessment/Plan: # Chronic left hip infection with increasing pain, but radiologic features do not show progression of bone infection but imaging show significant and large inflammatory/infectious process that needs surgical management PAULINE. Wound culture shows group a strep and MRSA which is not unexpected --continue hold antibiotics --limb salvage group at [facility], willing to continue to see her, imaging sent yesterday so that team at [facility] can meet at multi-disciplinary roundsm to decide plan for surgery. Other limitation recognized today is that she has phone but no VM, no email. She can respond to text message. --dc okay from ID standpoint --I personally coordinated care with [facility] # MRSA: Contact precaution Subjective: Patient expresses significant this appointment about lack of direct transfer to [facility] Objective: Vital Signs Temp Pulse Resp BP Pulse Ox 37.4 C 103 H 18 100/64 93 10/24/17 08:00 10/24/17 08:00 10/24/17 08:00 10/24/17 08:00 10/24/17 08:00 Microbiology 10/22/17 15:00 Gram Stain - Final Hip - Swab Wound Culture - Final Streptococcus Pyogenes Grp A Laboratory Results 10/24/17 05:12 10/23/17 10/24/17 10/25/17 05:59 05:59 05:59 Intake Total 1660 300 Output Total 1950 Balance -290 300 ESR > 130 MM/HR (0-20) H 10/23/17 08:17 C-Reactive Protein 71.0 mg/L (<10.0) H 10/23/17 08:17 - Physical Exam General Appearance: alert, no apparent distress Respiratory: No accessory muscle use Skin: pallor, No rash Neuro/Psych: alert, depressed affect - Time Spent With Patient Time Spent with Patient: greater than 25 minutes Time Spent with Patient: Greater than 25 minutes spent on this patients care, greater than 50% of time spent counseling, educating, and coordinating care regarding the above mentioned plan. ICD10 Worksheet Patient Problems: Problems Problem Status Onset Left hip postoperative wound infection Acute Altered mental status Acute Colitis Acute Dislocation of internal left hip prosthesis Acute Hip dislocation, left Acute Hypothermia Acute Influenza A Acute Left hip pain Acute Methicillin resistant Staphylococcus aureus infection Acute ~02/25/17 Microcytic anemia Acute Polysubstance abuse Acute Recurrent dislocation, left hip Acute Wound dehiscence, surgical Acute
--- NOTE | 2017-10-24 13:32 | ASMTCMCOM ---
CM Note CM Note Notes: Pt [facility] lead housekeeper Ailyn [phone]: reports pt open for homemaking 1/kw w professional hc and non-medical transport w yellow cab (2 round trips/wk up to $25). Ailyn provided pt detailed information on medical transport w [facility] at intake, she will send pt information again. This CM will provide [facility] information to pt also (medical transport not a barrier to follow up care). Pt receives $700/month from [employer]. Ailyn reports pt already open with [facility] Sujatha Oswald [phone] who made referral to [facility] (Ailyn believes Vijaya Constanza may be [facility] worker). [facility] Ai Ford met w pt yesterday for behavioral health support and resources (see report). Pt well-connected to community resources. Upon d/c pt community services will continue and continued skilled HHC RN with [facility]. CM to follow Date Signed: 10/24/2017 01:32 PM Electronically Signed By:ROBER Pitts
[2017-10-24] MEDS ORDERED: NS 1,000 ML IV SCH (15:00)
--- NOTE | 2017-10-24 15:53 | WOCRNPDOC ---
WOCRN Advanced Assessment Note - Skin Integrity Problem, Advanced Assess Left Medial Ankle Dressing Type: Allevyn Life Dressing Description: Clean/Dry, Intact Exudate Amount: Minimal Exudate Color: Yellow Exudate Characteristic(s): Serosanguinous Integumentary Issue Intervention: Dressing Changed, Hydrogel Applied Rita Wound Tissue: Erythema, Swollen, Painful/Tender Rita Wound Swelling: Mild Wound Bed Color: Red, Yellow Wound Bed Constitution: Red/Crivitz - Non Granular Tissue (50%), Loose Slough (50%) Site Odor: Slight, Pungent Site Measurement - Head-to-Toe Length X Width X Depth (cm): 1.2x1.2x0.2 Skin Integrity Problem Comment: Wound bed cleaned with normal saline and patted dry with gauze. Patient states wound is quite painful. Patient has history of MRSA. Wound is on bony prominence of medial aspect of malleolus. Wound gel applied, and covered with allevyn life.
--- NOTE | 2017-10-24 16:43 | HOSPPROG ---
Hospitalist Progress Note Assessment/Plan: * Chronic hip infection - need surgery with limb salvage specialist -holding antibiotics per ID -imaging looks unchanged from previous -outpatient follow-up at * Sepsis - leukocytosis/tachycardia/low grade fever -BC negative -check lactate -IVF -hold abx per ID * Microcytic anemia -stable * PTSD -continue home psych meds -Kellie Escobedo to see * Hep C, h/o IVDA -HIV negative in past -denies active use Subjective: Somnolent today Objective: Vital Signs Temp Pulse Resp BP Pulse Ox 36.8 C 102 H 18 106/79 93 10/24/17 16:00 10/24/17 16:00 10/24/17 16:00 10/24/17 16:00 10/24/17 08:00 Microbiology 10/22/17 15:00 Gram Stain - Final Hip - Swab Wound Culture - Final Streptococcus Pyogenes Grp A Laboratory Results 10/24/17 05:12 10/23/17 10/24/17 10/25/17 05:59 05:59 05:59 Intake Total 1660 300 Output Total 1950 Balance -290 300 d/w Dr. Kwon regarding discharge plan - Time Spent With Patient Time Spent with Patient: greater than 35 minutes Time Spent with Patient: Greater than 35 minutes spent on this patients care, greater than 50% of time spent counseling, educating, and coordinating care regarding the above mentioned plan. - Physical Exam Constitutional: no apparent distress, appears nourished, not in pain Cardiovascular: regular rate and rhythym, no murmur, rub, or gallop Respiratory: no respiratory distress, no rales or rhonchi, clear to auscultation Gastrointestinal: normoactive bowel sounds, soft, non-tender abdomen, no palpable masses Skin: no rashes or abrasions, no fluctuance, no induration Neurologic: AAOx3, sensation intact bilaterally Psychiatric: interacting appropriately, not anxious, not encephalopathic, thought process linear ICD10 Worksheet Patient Problems: Problems Problem Status Onset Left hip postoperative wound infection Acute Altered mental status Acute Colitis Acute Dislocation of internal left hip prosthesis Acute Hip dislocation, left Acute Hypothermia Acute Influenza A Acute Left hip pain Acute Methicillin resistant Staphylococcus aureus infection Acute ~02/25/17 Microcytic anemia Acute Polysubstance abuse Acute Recurrent dislocation, left hip Acute Wound dehiscence, surgical Acute
--- NOTE | 2017-10-24 16:44 | ASMTCMCOM ---
CM Note CM Note Notes: Met w pt to discuss d/c, possible tomorrow. Therapies continue to rec home care, pt does not qualify for any respite or SNF and informed pt of this. Pt upset at the idea of d/c, fearful she cannot care for herself. Pt does state 1500 would be a good time for her to get home and she will need [facility] transport which CM will assist with. Pt has no friends/family to assist at home, neighbor is caring for dog now. 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 Pt reports she does not have P information technology technician and does not want one (does not elaborate further). Updated [facility], pt has developed a positive relationship with [facility] RN Renee and they will make sure she is assigned to pt again. Pt image copy sent "snail mail" to [facility] yesterday and copy in chart for pt. Spoke with [facility] RN Leesa ([phone]) for Dr. Harkins they will next be able to present her case 11/06/17 and Leesa schedules pt for an appointment for 1200 that day. This CM updated Leesa pt has reported she has no voicemail, Leesa states she has no texting capabilities but hopefully pt can answer phone when [facility] calls because their number is very easily recognizable. CM to follow. D/c plan of care: Home with [facility] and outpatient follow up at [facility] Date Signed: 10/24/2017 04:43 PM Electronically Signed By:ROBER Pitts
[2017-10-24] MEDS: ACETAMINOPHEN 325 MG TAB PO PRN (21:07)
[2017-10-24] MEDS: hydrOXYzine HCL 50 MG TAB PO PRN (21:08)
[2017-10-24] MEDS: ZOLPIDEM TARTRATE 5 MG TAB PO SCH (21:08)
[2017-10-24] MEDS: QUEtiapine FUMARATE 100 MG TAB PO SCH (21:08)
[2017-10-25] MEDS: KETOROLAC 30 MG/1 ML SDV IVP PRN ×2 (04:14→10:29)
[2017-10-25] MEDS: clonazePAM 0.5 MG TAB PO PRN ×2 (04:40→12:54)
[2017-10-25] MEDS: traMADol 50 MG TAB PO PRN ×2 (04:41→12:53)
[2017-10-25] MEDS: DIAZEPAM 5 MG TAB PO PRN ×2 (04:42→14:23)
[2017-10-25 05:40] LABS: PLATELET COUNT 741 10^3/uL (150-400)
[2017-10-25 09:00] VITALS: BP 101/44
[2017-10-25] MEDS: busPIRone 15 MG TAB PO SCH (09:01)
[2017-10-25] MEDS: ENOXAPARIN 40 MG/0.4 ML SYR SC SCH (09:01)
[2017-10-25] MEDS: MULTIVITAMINS 1 EACH TAB PO SCH (09:01)
[2017-10-25] MEDS: NICOTINE 14 MG/24 HR PATCH TD SCH (09:01)
[2017-10-25] MEDS: GABAPENTIN 300 MG CAP PO SCH (09:01)
[2017-10-25] MEDS: FLUTICASONE HFA 110 MCG MDI IH SCH (09:02)
[2017-10-25] MEDS: FLUTICASONE NASAL 120 SPRAYS/16 GM MDI EACHNARE SCH (09:02)
--- NOTE | 2017-10-25 10:13 | PDIAF ---
- Diagnosis Diagnosis: Chronic hip infection Code Status: Full Code - Medication Management Discharge Medications: Medications to Continue on Transfer Fluticasone Hfa 110 Mcg [Flovent 110 MCG Hfa MDI (*)] 2 puffs IH BID 04/23/16 [ Last Taken 04/23/16] Zolpidem Tartrate [Ambien 5MG (*)] 5 mg PO HS 04/23/16 [Last Taken 04/22/16] clonazePAM [klonoPIN (*)] 1 mg PO TID PRN 04/23/16 [Last Taken 06/15/17] Gabapentin [Neurontin 300 MG (*)] 600 mg PO TID 06/16/17 [Last Taken 10/21/17 AM ] QUEtiapine FUMARATE [Seroquel 100 mg (*)] 100 mg PO HS 06/16/17 [Last Taken Unknown] Acetaminophen [Tylenol ES 500 mg (*)] 500 mg PO QID PRN 10/21/17 [Last Taken Unknown] Albuterol Hfa Anes Only [Proair Hfa Icu (*)] 1 - 2 puffs IH Q4H PRN 10/21/17 [ Last Taken Unknown] Diazepam [Valium 10 MG (*)] 10 mg PO TID PRN 10/21/17 [Last Taken 10/21/17 AM] Fluticasone Nasal [Flonase Nasal [place]] 2 sprays NASAL DAILY 10/21/17 [Last Taken Unknown] Herbals/Supplements -Info Only 1 ea PO DAILY 10/21/17 [Last Taken Unknown] Multivitamins [Multivitamin (*)] 1 each PO DAILY 10/21/17 [Last Taken Unknown] Naproxen 500 mg PO BIDMEAL 10/21/17 [Last Taken Unknown] busPIRone [Buspar (*)] 15 mg PO TID 10/21/17 [Last Taken Unknown] hydrOXYzine HCL [Vistaril 50MG (RX)] 50 mg PO TID PRN 10/21/17 [Last Taken Unknown] Cyclobenzaprine [Flexeril 10 MG (*)] 10 mg PO TID PRN #30 tab 10/25/17 [Last Taken Unknown] traMADol [Ultram 50 mg (*)] 50 mg PO Q6HRS PRN #30 tab 10/25/17 [Last Taken Unknown] Discharge Medications: Refer to the Discharge Home Medication list for PRN reason. - Orders Services needed: Home Care, Registered Nurse, Certified Die Developer, Master Sap Bw Architect, Physical Therapy, Occupational Therapy Home Care Face to Face: I certify that this patient was under my care and that I had the required [id number] encounter meeting the encounter requirements on the discharge day. My findings support the fact that the patient is homebound as defined in Home Care Face to Face Continued: CMS Chapter 7 Medicare Benefits Manual 30.1.1 , The condition of the patient is such that there exists a normal inability to leave home and consequently, leaving home would require a considerable and taxing effort. Isolation Type: Contact Isolation Diet Recommendation: no restrictions on diet Wound Care Instructions: wound care orders. Change dressing/packing to left hip wound Q2D and prn. 1. Flush wound well with wound cleanser or NS and dry with gauze. 2. Skin prep rosalva wound. 3. Use inch Algidex Ag packing (or other antimicrobial packing) and Cut more than you think you will need and pack tunnels and canyons fully but not tightly. Leave a tail of at least 2 cm. 4. Cover with ABD and medipore tape. Stephania Lanza RN Wound care team. Change dressings to left medial ankle every 3 days and prn. 1. Clean with ns and gauze. 2. Skin prep rosalva wound. 3. Wound gel to wound bed. 4. Cover with Allevyn Life. Oumou Briggs RN Wound Care Team Additional Instructions: Take Ibuprofen or Naprosyn - no both - Follow Up Care Current Providers and Referrals: NONE *PRIMARY CARE P,. [Primary Care Provider] - As per Instructions Ben Harkins [Non Staff Provider ()] - 11/06/17 12:00 pm (Bring your disk containing MRI and CT images to the appointment)
[2017-10-25] MEDS: CYCLOBENZAPRINE 10 MG TAB PO PRN (10:30)
--- NOTE | 2017-10-25 16:40 | ASMTCMCOM ---
CM Note CM Note Notes: Pt medically stable for [facility] (spoke with Juany). Orders sent in [email or web address]. Pt also has [facility] correctional casework specialist (Ailyn was updated about d/c) and is connected to [facility]. Pt provided a sheet of all of her services/contacts, the details of her ortho appointment 11/06/17 and how to set up [facility] transport. Pt knows how to access [facility], today said she has their number programmed in her phone and she set up [facility] to get home today. Pt also provided a letter she requested documenting her hospital stay. Date Signed: 10/25/2017 04:39 PM Electronically Signed By:ROBER Pitts
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
--- NOTE | 2017-10-25 18:16 | GDS ---
[f rep st] DISCHARGE SUMMARY DISCHARGE DIAGNOSES: 1. Chronic hip infection, status post hardware removal. 2. Sepsis. 3. Microcytic anemia. 4. Posttraumatic stress disorder. 5. Hepatitis C. HISTORY: Rani is a 37-year-old female with a complex past medical history. She has a history of hip infections and has actually had hardware removed, and now has no hip joint, just infection chronically for which she is non- weightbearing. She was being seen at [facility], but was fired due to noncompliance. She is now trying to establish with [facility], Dr. Harkins. She presented to the hospital for decreased ambulation, increased pain and increased drainage. She was seen here in consultation with Infectious Disease who knows her well. Cultures from her drainage are growing MRSA and group A strep. Please refer to Dr. Juliann Kwon's notes, but they do not believe further antibiotic therapy will be of any benefit. She needs surgery PAULINE. Dr. Kwon spoke with Dr. Harkins at [facility] and they made her an appointment for November 06. The MRI and CT scan that they required were done during this hospitalization. They are going to present her at their multidisciplinary case study rounds to decide on the best course of therapy moving forward. Her imaging here looks unchanged from previous imaging. This was reassuring to Infectious Disease regarding their decision to continue to hold antibiotics. The patient has difficulties with outpatient followup and despite our attempts to assist her as much as possible to improve her compliance, she gets very emotional and scattered at times and loses track of what she is supposed to do. I had case management work with her outpatient Medicaid social staff worker to see if we can increase to increase her assistance with maintaining outpatient appointments and followup. Please refer to Case Management notes. DISCHARGE MEDICATIONS: Please see computer record for full detailed list. New medication: Tramadol 50 mg p.o. q.6 hours as needed. ADDITIONAL DISCHARGE INSTRUCTIONS: 1. Follow up with Dr. Ben Harkins at [facility]. Appointment made for November 06 at 12 p.m. 2. Non-weightbearing. 3. Home health, PT, OT, VNS and social staff worker per Medicaid. 4. Wound care orders for the hip as well as a small ulceration on her lower leg ; please refer to chart. 5. Greater than 30 minutes' time spent arranging this discharge. Patient seen and examined by me on the day of discharge. /[id number]/MODL MTDD
== END 2017-10-25 14:58 | disposition home health service (06) | DRG 721 ==
LOC: EDUNIT# → OBSVTOIN 17:48 → F3N 18:21
PROVIDERS: ADMIT Internal Medicine; ATTEND Internal Medicine
DX: T81.4XXA Infection following a procedure, initial encounter (principal); A41.02 Sepsis due to Methicillin resistant Staphylococcus aureus; B95.0 Streptococcus, group A, as the cause of diseases classified elsewhere; F43.10 Post-traumatic stress disorder, unspecified; F12.90 Cannabis use, unspecified, uncomplicated; F41.0 Panic disorder [episodic paroxysmal anxiety]; J45.909 Unspecified asthma, uncomplicated; G89.29 Other chronic pain; B19.20 Unspecified viral hepatitis C without hepatic coma; Z72.0 Tobacco use
CPT/HCPCS: 80305; 96374; 97116-GP; 97161-GP; 97166-GO; 97535-GO; A9585; J1650; J1885; J2405; J3010; Q9967

== ENCOUNTER 2018-06-21 15:24 | Inpatient (IN) | payer MEDICAID ==
[2018-06-21] MEDS ORDERED: NS 1,000 ML IV ONE (15:38)
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
[2018-06-21 16:08] LABS: PLATELET COUNT 433 10^3/uL (150-400)
[2018-06-21] MEDS ORDERED: HYDROmorphONE/DILAUDID 2 MG/ML INJ IVP ONE (16:27)
[2018-06-21] MEDS ORDERED: cefTRIAXone 1 GM/DEXTROSE 1 GM/50 ML BAG IV ONE (16:30)
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
[2018-06-21] MEDS ORDERED: LORazepam 2 MG/ML INJ IVP ONE (17:27)
[2018-06-21] MEDS ORDERED: LORazepam 2 MG/ML INJ ONE (17:29)
[2018-06-21] MEDS ORDERED: ALBUTEROL HFA ANES ONLY 200 PUFFS/8.5 GM MDI IH PRN (18:07)
[2018-06-21] MEDS ORDERED: ZOLPIDEM TARTRATE 5 MG TAB PO PRN (18:07)
[2018-06-21] MEDS ORDERED: DOXYCYCLINE INJ 100 MG in NS 250 ML IV SCH (19:00)
[2018-06-21] MEDS: oxyCODONE IR 5 MG TAB PO PRN ×2 (19:01→23:13)
[2018-06-21] MEDS: DOXYCYCLINE INJ 100 MG in NS 250 ML IV SCH (20:17)
[2018-06-21] MEDS: QUEtiapine FUMARATE 100 MG TAB PO SCH (20:17)
[2018-06-21] MEDS: hydrOXYzine HCL 50 MG TAB PO PRN (20:40)
[2018-06-21] MEDS: ACETAMINOPHEN 500 MG TAB PO PRN (20:41)
[2018-06-21] MEDS: DIAZEPAM 10 MG TAB PO PRN (20:41)
[2018-06-21] MEDS: IBUPROFEN 600 MG TAB PO PRN (20:41)
[2018-06-21] MEDS ORDERED: NICOTINE 21 MG/24 HR PATCH TD SCH (21:00)
[2018-06-21] MEDS: FLUTICASONE HFA 110 MCG MDI IH SCH (22:13)
[2018-06-21] MEDS: NICOTINE 21 MG/24 HR PATCH TD SCH (22:40)
[2018-06-21] MEDS: clonazePAM 1 MG TAB PO PRN (22:42)
[2018-06-21] MEDS: GABAPENTIN 300 MG CAP PO SCH (22:43)
[2018-06-21] MEDS: busPIRone 15 MG TAB PO SCH (22:45)
[2018-06-21] MEDS: traMADol 50 MG TAB PO SCH (23:23)
[2018-06-22] MEDS: traMADol 50 MG TAB PO SCH ×3 (05:16→18:29)
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
[2018-06-22] MEDS: GABAPENTIN 300 MG CAP PO SCH ×2 (08:44→16:15)
[2018-06-22] MEDS: busPIRone 15 MG TAB PO SCH ×2 (08:44→16:14)
[2018-06-22] MEDS: IBUPROFEN 600 MG TAB PO PRN (08:44)
[2018-06-22] MEDS: ACETAMINOPHEN 500 MG TAB PO PRN ×2 (09:21→18:29)
[2018-06-22] MEDS: oxyCODONE IR 5 MG TAB PO PRN ×3 (09:22→20:37)
[2018-06-22] MEDS: clonazePAM 1 MG TAB PO PRN (09:23)
[2018-06-22] MEDS: hydrOXYzine HCL 50 MG TAB PO PRN ×2 (09:23→18:29)
[2018-06-22] MEDS: FLUTICASONE HFA 110 MCG MDI IH SCH ×2 (09:24→22:11)
[2018-06-22] MEDS: DOXYCYCLINE INJ 100 MG in NS 250 ML IV SCH ×2 (09:25→20:44)
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
[2018-06-22] MEDS: DIAZEPAM 10 MG TAB PO PRN ×2 (10:54→21:00)
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
[2018-06-22] MEDS: QUEtiapine FUMARATE 50 MG TAB PO PRN (16:41)
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
[2018-06-22] MEDS: QUEtiapine FUMARATE 100 MG TAB PO SCH (20:39)
[2018-06-22] MEDS: NICOTINE 21 MG/24 HR PATCH TD SCH (20:42)
[2018-06-23] MEDS: GABAPENTIN 300 MG CAP PO SCH ×3 (03:02→16:05)
[2018-06-23] MEDS: traMADol 50 MG TAB PO SCH ×3 (03:09→12:10)
[2018-06-23] MEDS: oxyCODONE IR 5 MG TAB PO PRN ×2 (04:15→15:39)
[2018-06-23] MEDS: busPIRone 15 MG TAB PO SCH ×3 (04:16→16:05)
[2018-06-23] MEDS: clonazePAM 1 MG TAB PO PRN (05:35)
[2018-06-23] MEDS: IBUPROFEN 600 MG TAB PO PRN ×2 (06:18→12:10)
[2018-06-23] MEDS: ACETAMINOPHEN 500 MG TAB PO PRN (06:18)
[2018-06-23] MEDS ORDERED: ENOXAPARIN 40 MG/0.4 ML SYR SC SCH (09:00)
[2018-06-23] MEDS ORDERED: DIAZEPAM 5 MG TAB PO PRN (09:11)
[2018-06-23] MEDS ORDERED: ZOLPIDEM TARTRATE 5 MG TAB PO PRN (09:12)
[2018-06-23] MEDS: FLUTICASONE HFA 110 MCG MDI IH SCH (09:37)
[2018-06-23] MEDS: DOXYCYCLINE INJ 100 MG in NS 250 ML IV SCH (09:45)
[2018-06-23] MEDS ORDERED: LIDOCAINE HCL 4% TOPICAL SOLN 50ML MM PRN (10:42)
[2018-06-23] MEDS ORDERED: HYDROmorphONE/DILAUDID 1 MG/ML INJ IVP ONE (10:44)
[2018-06-23] MEDS ORDERED: NS 1,000 ML IV ONE (10:46)
[2018-06-23] MEDS: hydrOXYzine HCL 50 MG TAB PO PRN (11:13)
[2018-06-23 11:47] VITALS: BP 91/66
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
[2018-06-23] MEDS ORDERED: clonazePAM 0.5 MG TAB PO PRN (14:00)
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
[2018-06-23] MEDS: NICOTINE 21 MG/24 HR PATCH TD SCH (15:38)
[2018-06-23] MEDS: QUEtiapine FUMARATE 50 MG TAB PO PRN (15:39)
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
[2018-06-23] MEDS ORDERED: DOXYCYCLINE HYCLATE 100 MG CAP/TAB PO SCH (21:00)
== END 2018-06-23 16:16 | disposition short-term general hospital (02) | DRG 844 ==
LOC: EDUNIT# → F3N 17:40 → OBSVTOIN 06-22 04:40
PROVIDERS: ADMIT Student in an Organized Health Care Education/Training Program; ATTEND Internal Medicine
DX: T24.331A Burn of third degree of right lower leg, initial encounter (principal); L03.115 Cellulitis of right lower limb; T31.0 Burns involving less than 10% of body surface; B18.2 Chronic viral hepatitis C; D50.9 Iron deficiency anemia, unspecified; F11.11 Opioid abuse, in remission; X16.XXXA Contact with hot heating appliances, radiators and pipes, initial encounter; M62.838 Other muscle spasm; F41.0 Panic disorder [episodic paroxysmal anxiety]; M25.852 Other specified joint disorders, left hip; F43.10 Post-traumatic stress disorder, unspecified; J45.909 Unspecified asthma, uncomplicated; F12.180 Cannabis abuse with cannabis-induced anxiety disorder; F17.210 Nicotine dependence, cigarettes, uncomplicated; Y93.89 Activity, other specified; Y92.002 Bathroom of unspecified non-institutional (private) residence as the place of occurrence of the external cause; Z86.14 Personal history of Methicillin resistant Staphylococcus aureus infection; Z91.419 Personal history of unspecified adult abuse; Z96.642 Presence of left artificial hip joint
CPT/HCPCS: 96374; J0696; J1170; J1650; J2060